=== PATIENT | female | born 1955 | race Caucasian/White ===

== ENCOUNTER 2016-12-05 23:45 | Observation (INO) | payer OTHER ==
[~2016-12-05] VITALS: Ht 170.2 cm; Wt 89.3 kg
[2016-12-05 23:45] VITALS: Ht 170.2 cm; Wt 89.3 kg
[2016-12-06] VITALS (14 sets, daily range): BP systolic 107–157; BP diastolic 63–91; PULSE 70–97; TEMP 36.7–36.9; O2SAT 91–97
[2016-12-06] MEDS ORDERED: ALBUT/IPRATROP 3MG/0.5MG NEB 3 ML VIAL INH STA (00:04)
[2016-12-06] MEDS ORDERED: ASCO10003 PO (00:24)
[2016-12-06] MEDS ORDERED: CALC-214 PO (00:24)
[2016-12-06] MEDS ORDERED: FLUT0.15 NAE (00:24)
[2016-12-06] MEDS ORDERED: CHOLCAP5 PO (00:24)
[2016-12-06] MEDS ORDERED: LEVO150T9 PO (00:24)
[2016-12-06] MEDS ORDERED: ECHI380C2 PO (00:24)
[2016-12-06] MEDS ORDERED: MULT-506 PO (00:24)
[2016-12-06 00:43] LABS: BASO % 0.2 %; BASO ABS # 0.04 K/uL (0-0.2); COMPLETE YES; EOS % 0.9 %; HEMATOCRIT 40.6 % (37-47); IG% 0.6 %; LYMPH % 24.4 %; LYMPH ABS # 3.91 K/uL (1.2-3.4); MEAN CELL VOLUME 94.2 fL (80-100); MEAN CORPUSCULAR HEMOGLOBIN 32.9 pg (25-34); MEAN PLATELET VOLUME 9.4 fL (7.4-10.4); MONO % 6.5 %; NEUT % 67.4 %; PLATELET COUNT 326 K/uL (130-400); RED BLOOD COUNT 4.31 M/uL (4.2-5.4); WHITE BLOOD COUNT 16.05 K/uL (4.8-10.8)
[2016-12-06] MEDS ORDERED: OPTIRAY 320 IV PRN (01:00)
[2016-12-06 01:04] LABS: BUN/CREATININE RATIO 20.6 (10-20); CALCIUM 8.7 mg/dl (8.5-10.1); POTASSIUM 3.2 mmol/L (3.5-5.1)
[2016-12-06 01:10] LABS: URINE APPEARANCE CLEAR (CLEAR); URINE BILIRUBIN NEG (NEG); URINE COLOR YELLOW; URINE NITRITE NEG (NEG); URINE PH 5.5 (4.5-7.5); URINE SPECIFIC GRAVITY 1.022 (1.000-1.030); UROBILINOGEN NEG (NEG)
[2016-12-06 01:14] LABS: ALB/GLOB RATIO 1.1 (0.9-2); CKMB/CK RATIO 2.2 (0-3.0)
[2016-12-06 01:15] LABS: MANUAL MICROSCOPIC REQUIRED? NO; REVIEW REQ? NO
--- NOTE | 2016-12-06 02:32 | EMERGENCY ROOM VISIT NOTE ---
History Report prepared by Clementeibedmundo: Georgia Burns Under the Supervision of: Dr. René Mittal M.D. First contact with patient: 23:55 Chief Complaint: SHORTNESS OF BREATH Stated Complaint: RESPIRATORY/WHEEZING Nursing Triage Summary: Pt arrived via [facility] from home. Pt reports she awoke tonight with an asthma attack. Pt states she "hasn't had one in years". Upper respiratory infection 3 weeks ago. Tx with steriods and antibiotics. Pt reports she felt "a little better", but never made it back to baseline. Received 125mg solumedrol in ambulance along with duoneb. History of Present Illness The patient is a 61 year old female who presents to the Emergency Room with complaints of shortness of breath that started prior to arrival. She was brought to the ED via EMS from home. She reports she awoke from sleep with an asthma attack around 2244. She states "I haven't had an attack in years". She is a former smoker, but quit "over 30 years ago". The patient did experience an upper respiratory tract infection approximately 3 weeks ago, that was treated with a Prednisone taper and a Z-Pack by her doctors office. She notes "I felt a little better, but I never got back to my baseline". She called her PCP's office and was told to "wait a week" and see if her symptoms improved. The patient states her symptoms "have not worsened, but they are not better". She was given 125 mg Solu-Medrol and a DuoNeb in the field that provided good relief. She also complains of a headache currently. The patient denies any LOC, fevers, chills, diaphoresis, visual changes, neck pain, chest pain, nausea, vomiting, abdominal pain, back pain, melena, hematochezia, urinary symptoms, numbness, weakness, lymphadenopathy, rash, or other complaints. Source of History: patient Onset: 2244 tonight Position: chest Timing: resolved Modifying Factors (Relieving): other (Prednisone, Z-pack, DuoNeb, Solu- Medrol) Associated Symptoms: + headache Review of Systems See HPI for pertinent positives and negatives. A total of ten systems were reviewed and were otherwise negative. Past Medical & Surgical Medical Problems: (1) Asthma (2) Dyspnea Social History Smoking Status: Former Smoker Alcohol Use: occasionally Drug Use: none Marital Status: Housing Status: lives alone Occupation Status: employed Current/Historical Medications Scheduled Ascorbic Acid (Vitamin C), 1,000 MG PO DAILY Calcium W/ Magnesium (Calcium & Magnesium), 1 TAB PO DAILY Cholecalciferol (Vitamin D3), 5,000 UNITS PO DAILY Echinacea (Echinacea), Unknown Dose PO DAILY Fluticasone Propionate (Nasal) (Flonase Allergy Relief), 1 SPRAY HUNG HS Levothyroxine Sodium (Levothyroxine Sodium), 150 MCG PO DAILY Multivitamin (Multivitamin), 1 TAB PO DAILY Allergies Coded Allergies: Penicillins (Verified Allergy, Severe, SOB, 12/06/16) Sulfa Antibiotics (Verified Allergy, Severe, SHORTNESS OF BREATH, 12/06/16 ) Physical Exam Vital Signs Date Time Temp Pulse Resp B/P (MAP) Pulse Ox O2 Delivery O2 Flow Rate FiO2 12/06/16 02:02 102 20 132/96 95 Room Air 12/06/16 01:31 138/86 12/06/16 01:24 134/81 12/06/16 00:50 106 18 97 12/06/16 00:45 107 19 97 12/06/16 00:31 139/86 12/06/16 00:15 126 16 96 12/06/16 00:04 116 12/06/16 00:01 125/98 12/05/16 23:50 128/107 12/05/16 23:45 36.8 131 35 160/103 97 Room Air 12/05/16 23:45 96 Room Air 12/05/16 23:45 96 Room Air Physical Exam GENERAL: Awake, alert, uncomfortable-appearing, in no distress HENT: Normocephalic, atraumatic. Oropharynx unremarkable. EYES: Normal conjunctiva. Sclera non-icteric. NECK: Supple. No nuchal rigidity. FROM. No JVD. RESPIRATORY: Lung sounds are diminished at the bases. CARDIAC: Tachycardic heart rate, normal rhythm. Extremities warm and well perfused. Pulses equal. ABDOMEN: Soft, non-distended. No tenderness to palpation. No rebound or guarding. No masses. RECTAL: Deferred. MUSCULOSKELETAL: Chest examination reveals no tenderness. The back is symmetrical on inspection without obvious abnormality. There is no CVA tenderness to palpation. No joint edema. LOWER EXTREMITIES: Calves are equal size bilaterally and non-tender. No edema. No discoloration. NEURO: Normal sensorium. No sensory or motor deficits noted. SKIN: No rash or jaundice noted. Medical Decision & Procedures ER Provider Diagnostic Interpretation: Chest x-ray. Findings: A chest x-ray was performed and revealed no pneumothorax , effusion, infiltrate, pulmonary edema, free air under the diaphragm, or wide mediastinum. Chronic changes noted. Preliminary Findings Only See Final Report For Complete Findings CTA CHEST: No evidence of PE. Lungs are clear. No pleural effusions. No adenopathy. No pericardial effusion. Aorta is unremarkable. 8.6 mm pulmonary nodule at the left lower lobe abutting the pleura. Noncalcified and indeterminate. Further investigation/follow-up suggested. Question mild infiltrate at the medial segment of the right middle lobe. Correlate for clinical significance. Radiologist: David Lou M.D. Laboratory Results 12/05/16 00:25 Red Blood Count 4.31, Mean Corpuscular Volume 94.2, Mean Corpuscular Hemoglobin 32.9, Mean Corpuscular Hemoglobin Concent 35.0, Mean Platelet Volume 9.4, Neutrophils (%) (Auto) 67.4, Lymphocytes (%) (Auto) 24.4, Monocytes (%) (Auto) 6.5, Eosinophils (%) (Auto) 0.9, Basophils (%) (Auto) 0.2, Neutrophils # (Auto) 10.81, Lymphocytes # (Auto) 3.91, Monocytes # (Auto) 1.05, Eosinophils # (Auto) 0.15, Basophils # (Auto) 0.04 12/05/16 00:25 Test 12/05/16 00:25 12/06/16 00:34 12/06/16 00:58 White Blood Count 16.05 K/uL (4.8-10.8) Red Blood Count 4.31 M/uL (4.2-5.4) Hemoglobin 14.2 g/dL (12.0-16.0) Hematocrit 40.6 % (37-47) Mean Corpuscular Volume 94.2 fL (80-100) Mean Corpuscular Hemoglobin 32.9 pg (25-34) Mean Corpuscular Hemoglobin Concent 35.0 g/dl (32-36) Platelet Count 326 K/uL (130-400) Mean Platelet Volume 9.4 fL (7.4-10.4) Neutrophils (%) (Auto) 67.4 % Lymphocytes (%) (Auto) 24.4 % Monocytes (%) (Auto) 6.5 % Eosinophils (%) (Auto) 0.9 % Basophils (%) (Auto) 0.2 % Neutrophils # (Auto) 10.81 K/uL (1.4-6.5) Lymphocytes # (Auto) 3.91 K/uL (1.2-3.4) Monocytes # (Auto) 1.05 K/uL (0.11-0.59) Eosinophils # (Auto) 0.15 K/uL (0-0.5) Basophils # (Auto) 0.04 K/uL (0-0.2) RDW Standard Deviation 43.8 fL (36.4-46.3) RDW Coefficient of Variation 12.6 % (11.5-14.5) Immature Granulocyte % (Auto) 0.6 % Immature Granulocyte # (Auto) 0.09 K/uL (0.00-0.02) Anion Gap 13.0 mmol/L (3-11) Est Creatinine Clear Calc Drug Dose 69.4 ml/min Estimated GFR () 70.9 Estimated GFR (Non- 61.2 BUN/Creatinine Ratio 20.6 (10-20) Calcium Level 8.7 mg/dl (8.5-10.1) Total Bilirubin 0.3 mg/dl (0.2-1) Aspartate Amino Transf (AST/SGOT) 17 U/L (15-37) Alanine Aminotransferase (ALT/SGPT) 36 U/L (12-78) Alkaline Phosphatase 81 U/L (45-117) Total Creatine Kinase 134 U/L (26-192) Creatine Kinase MB 2.9 ng/ml (0.5-3.6) Creatine Kinase MB Ratio 2.2 (0-3.0) Troponin I 0.235 ng/ml (0-0.045) Pro-B-Type Natriuretic Peptide 213 pg/ml (0-900) Total Protein 7.3 gm/dl (6.4-8.2) Albumin 3.9 gm/dl (3.4-5.0) Globulin 3.4 gm/dl (2.5-4.0) Albumin/Globulin Ratio 1.1 (0.9-2) Bedside D-Dimer > 450 ng/mlFEU (0-450) Urine Color YELLOW Urine Appearance CLEAR (CLEAR) Urine pH 5.5 (4.5-7.5) Urine Specific [place] 1.022 (1.000-1.030) Urine Protein 2+ (NEG) Urine Glucose (UA) NEG (NEG) Urine Ketones NEG (NEG) Urine Occult Blood TRACE (NEG) Urine Nitrite NEG (NEG) Urine Bilirubin NEG (NEG) Urine Urobilinogen NEG (NEG) Urine Leukocyte Esterase NEG (NEG) Urine WBC (Auto) 1-5 /hpf (0-5) Urine RBC (Auto) 0-4 /hpf (0-4) Urine Hyaline Casts (Auto) 1-5 /lpf (0-5) Urine Epithelial Cells (Auto) 10-20 /lpf (0-5) Urine Bacteria (Auto) NEG (NEG) Laboratory results reviewed by me Medications Administered Medications (Trade) Dose Ordered Sig/Galileo Route Start Time Stop Time Status Last Admin Dose Admin Albuterol/ Ipratropium (Duoneb) 3 ml NOW STAT INH 12/06/16 00:04 12/06/16 00:05 DC 12/06/16 00:21 3 ML ECG Indication: SOB/dyspnea Rate (beats per minute): 104 Rhythm: sinus tachycardia (with fusion complexes) Findings: nonspecific-ST abn, no acute ischemic change ED Course 1202: The patient was evaluated in room C2. A complete history and physical exam was performed. 0004: DuoNeb 3 ml INH. 0140; patient was reassessed and is doing better. 0230: Updated on findings and need for further treatment in the hospital. Patient is in agreement. Consultation placed with internal medicine. Medical Decision Triage Nursing notes reviewed. The patient's presentation and history were concerning for respiratory difficulty. Etiologies such as pneumonia, COPD, reactive airway disease, CHF, cardiac ischemia, pulmonary embolism, pneumothorax, musculoskeletal, infections, gastrointestinal, as well as others were entertained. The patient was evaluated. She was doing better after a DuoNeb and Solu-Medrol from EMS. A second DuoNeb was given. The patient was feeling better with this. ECG did not reveal any obvious ischemia. Her chest x-ray was noted as above. She does have a long history of smoking. The patient had a mild leukocytosis and CBC. Chemistry panel was unremarkable. The patient does have an elevated d-dimer and troponin. CT imaging was performed. She has a small pneumonia. No blood clots were noted. She was informed about her pulmonary nodule and need for follow-up in 6 months. Because of the elevated troponin she was given aspirin. She noted a small headache and was given Tylenol. The patient was given a dose of IV Levaquin. Consultation was placed with the hospitalist service. The patient was evaluated in the Emergency Room for further management. Medication Reconcilliation Current Medication List: was personally reviewed by me Blood Pressure Screening Patient's blood pressure: Normal blood pressure Blood pressure disposition: Did not require urgent referral Consults Time Called: [phone] Consulting Physician: Dr. Fang Returned Call: [phone] Discussed the patient's history, physical, diagnostics, and treatment. The patient will need admission and she will evaluate her for further management. Impression Primary Impression: Respiratory distress Additional Impressions: Pneumonia Elevated troponin Scribe Attestation The scribe's documentation has been prepared under my direction and personally reviewed by me in its entirety. I confirm that the note above accurately reflects all work, treatment, procedures, and medical decision making performed by me. Departure Information Dispostion Being Evaluated By Hospitalist Referrals No Doctor, Assigned (PCP) Patient Instructions My [facility] Problem Qualifiers
[2016-12-06] MEDS ORDERED: LEVAQUIN 750MG / 150ML D5W IV STA (02:33)
[2016-12-06] MEDS ORDERED: ACETAMINOPHEN 500 MG TAB PO STA (02:33)
[2016-12-06] MEDS ORDERED: ASPIRIN 81 MG CHEW PO STA (02:33)
[2016-12-06] MEDS ORDERED: MoRPHine SULFATE 2 MG/ML CARP IV STA (04:50)
[2016-12-06] MEDS ORDERED: LEVALBUTEROL/IPRATROPIUM NEB INH PRN (05:00)
[2016-12-06] MEDS ORDERED: ACETAMINOPHEN 325 MG TAB PO PRN ×2 (05:00→14:30)
[2016-12-06] MEDS ORDERED: POLYETHYLENE (MIRALAX) 17 GM PACK PO PRN (05:00)
[2016-12-06] MEDS ORDERED: MoRPHine SULFATE 2 MG/ML CARP IV PRN (05:00)
[2016-12-06] MEDS ORDERED: ONDANSETRON INJ 2 MG/ML 2 ML VIAL IV PRN (05:00)
[2016-12-06] MEDS ORDERED: NITROGLYCERIN 0.4 MG SL PER TAB CHARGE SL PRN (05:00)
[2016-12-06] MEDS ORDERED: IV FLUIDS COMPLETED PRN (05:15)
--- NOTE | 2016-12-06 05:31 | History and Physical ---
History & Physical Date & Time of Service: Dec 06, 2016 at 05:04 Chief Complaint: Dyspnea Primary Care Physician: Harjit Ramos M.D.(CHRYSTAL) History of Present Illness Source: patient, clinic records, hospital records 61 yo F presents with persistent chest tightness and shortness of breath that has been ongoing x 3 weeks. She reports a history of childhood asthma and no history of heart disease in the past. She states that because of a cough and greenish drainage from her nose 3 weeks ago she was seen in the clinic and was diagnosed with an asthma exacerbation. She was prescribed a prednisone taper, azithromycin and a rescue inhaler. Although she didn't get worse she states that she never felt much better. She reports the SOB is there along with the feeling of chest pressure, but it doesn't limit her from doing the things she needs to do including walking the dog, climbing a flight of stairs, running errands,etc. She noted an extreme worsening in her ability to breathe earlier this evening and called EMS who gave her Solumedrol IV and a neb treatment in the field with some improvement in her symptoms. On arrival to the ER she received another neb treatment. She was given ASA 324 and Tylenol 1000mg. A D- dimer was checked and positive, so a CT PE was performed. There was a RML infiltrate seen, cardiac enzymes were mildly positive at 0.235 with the patient still reporting pressure in her chest, EKG was nonischemic and sinus rhythm and her HR was noted to be elevated. Although she reports significant respiratory distress, she is oxygenating well on room air at the time of this exam and has no conversational dyspnea. ROS reveals no fevers, chills, sweating, nausea, vomiting, abdominal pain, UTI symptoms, GI bleeding. 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) Immunizations History of Influenza Vaccine: Yes Influenza Vaccine Date: Dec 11, 2015 History of Tetanus Vaccine?: Yes Tetanus Immunization Date: Jan 14, 2014 History of Pneumococcal: No History of Hepatitis B Vaccine: No Multi-Drug Resistant Organisms History of MDRO: No Allergies Coded Allergies: Penicillins (Verified Allergy, Severe, SOB, 12/06/16) Sulfa Antibiotics (Verified Allergy, Severe, SHORTNESS OF BREATH, 12/06/16 ) Home Medications Scheduled Ascorbic Acid (Vitamin C), 1,000 MG PO DAILY Calcium W/ Magnesium (Calcium & Magnesium), 1 TAB PO DAILY Cholecalciferol (Vitamin D3), 5,000 UNITS PO DAILY Echinacea (Echinacea), Unknown Dose PO DAILY Fluticasone Propionate (Nasal) (Flonase Allergy Relief), 1 SPRAY HUNG HS Levothyroxine Sodium (Levothyroxine Sodium), 150 MCG PO DAILY Multivitamin (Multivitamin), 1 TAB PO DAILY Review of Systems At least ten systems were reviewed and negative except as indicated in HPI. Physical Exam Vital Signs Date Time Temp Pulse Resp B/P (MAP) Pulse Ox O2 Delivery O2 Flow Rate FiO2 12/06/16 02:44 103 22 146/93 94 Room Air 12/06/16 02:02 102 20 132/96 95 Room Air 12/06/16 01:31 138/86 12/06/16 01:24 134/81 12/06/16 00:50 106 18 97 12/06/16 00:45 107 19 97 12/06/16 00:31 139/86 12/06/16 00:15 126 16 96 12/06/16 00:04 116 12/06/16 00:01 125/98 12/05/16 23:50 128/107 12/05/16 23:45 36.8 131 35 160/103 97 Room Air 12/05/16 23:45 96 Room Air 12/05/16 23:45 96 Room Air General Appearance: WD/WN, no apparent distress Head: normocephalic, atraumatic Eyes: normal inspection, PERRL, sclerae normal ENT: hearing grossly normal, pharynx normal Neck: supple, trachea midline Respiratory/Chest: chest non-tender, lungs clear, normal breath sounds, no respiratory distress, no accessory muscle use Cardiovascular: no edema, no gallop, no JVD, no murmur, normal peripheral pulses, + tachycardia Abdomen/GI: normal bowel sounds, non tender, soft Back: normal inspection Extremities/Musculoskelatal: normal inspection, no pedal edema Neurologic/Psych: book or script editor II-XII nml as tested, no motor/sensory deficits, alert, normal mood/affect, oriented x 3 Skin: normal color, warm/dry, no rash Diagnostics Laboratory Results 12/05/16 00:25 Red Blood Count 4.31, Mean Corpuscular Volume 94.2, Mean Corpuscular Hemoglobin 32.9, Mean Corpuscular Hemoglobin Concent 35.0, Mean Platelet Volume 9.4, Neutrophils (%) (Auto) 67.4, Lymphocytes (%) (Auto) 24.4, Monocytes (%) (Auto) 6.5, Eosinophils (%) (Auto) 0.9, Basophils (%) (Auto) 0.2, Neutrophils # (Auto) 10.81, Lymphocytes # (Auto) 3.91, Monocytes # (Auto) 1.05, Eosinophils # (Auto) 0.15, Basophils # (Auto) 0.04 12/05/16 00:25 Test 12/05/16 00:25 12/06/16 00:34 12/06/16 00:58 12/06/16 05:15 White Blood Count 16.05 K/uL (4.8-10.8) Red Blood Count 4.31 M/uL (4.2-5.4) Hemoglobin 14.2 g/dL (12.0-16.0) Hematocrit 40.6 % (37-47) Mean Corpuscular Volume 94.2 fL (80-100) Mean Corpuscular Hemoglobin 32.9 pg (25-34) Mean Corpuscular Hemoglobin Concent 35.0 g/dl (32-36) Platelet Count 326 K/uL (130-400) Mean Platelet Volume 9.4 fL (7.4-10.4) Neutrophils (%) (Auto) 67.4 % Lymphocytes (%) (Auto) 24.4 % Monocytes (%) (Auto) 6.5 % Eosinophils (%) (Auto) 0.9 % Basophils (%) (Auto) 0.2 % Neutrophils # (Auto) 10.81 K/uL (1.4-6.5) Lymphocytes # (Auto) 3.91 K/uL (1.2-3.4) Monocytes # (Auto) 1.05 K/uL (0.11-0.59) Eosinophils # (Auto) 0.15 K/uL (0-0.5) Basophils # (Auto) 0.04 K/uL (0-0.2) RDW Standard Deviation 43.8 fL (36.4-46.3) RDW Coefficient of Variation 12.6 % (11.5-14.5) Immature Granulocyte % (Auto) 0.6 % Immature Granulocyte # (Auto) 0.09 K/uL (0.00-0.02) Anion Gap 13.0 mmol/L (3-11) Est Creatinine Clear Calc Drug Dose 69.4 ml/min Estimated GFR () 70.9 Estimated GFR (Non- 61.2 BUN/Creatinine Ratio 20.6 (10-20) Calcium Level 8.7 mg/dl (8.5-10.1) Total Bilirubin 0.3 mg/dl (0.2-1) Aspartate Amino Transf (AST/SGOT) 17 U/L (15-37) Alanine Aminotransferase (ALT/SGPT) 36 U/L (12-78) Alkaline Phosphatase 81 U/L (45-117) Total Creatine Kinase 134 U/L (26-192) Creatine Kinase MB 2.9 ng/ml (0.5-3.6) Creatine Kinase MB Ratio 2.2 (0-3.0) Troponin I 0.235 ng/ml (0-0.045) Pro-B-Type Natriuretic Peptide 213 pg/ml (0-900) Total Protein 7.3 gm/dl (6.4-8.2) Albumin 3.9 gm/dl (3.4-5.0) Globulin 3.4 gm/dl (2.5-4.0) Albumin/Globulin Ratio 1.1 (0.9-2) Bedside D-Dimer > 450 ng/mlFEU (0-450) Urine Color YELLOW Urine Appearance CLEAR (CLEAR) Urine pH 5.5 (4.5-7.5) Urine Specific [place] 1.022 (1.000-1.030) Urine Protein 2+ (NEG) Urine Glucose (UA) NEG (NEG) Urine Ketones NEG (NEG) Urine Occult Blood TRACE (NEG) Urine Nitrite NEG (NEG) Urine Bilirubin NEG (NEG) Urine Urobilinogen NEG (NEG) Urine Leukocyte Esterase NEG (NEG) Urine WBC (Auto) 1-5 /hpf (0-5) Urine RBC (Auto) 0-4 /hpf (0-4) Urine Hyaline Casts (Auto) 1-5 /lpf (0-5) Urine Epithelial Cells (Auto) 10-20 /lpf (0-5) Urine Bacteria (Auto) NEG (NEG) Date/Time Source Procedure Growth Status 12/06/16 03:10 Blood Blood Culture Pending Received Results Past 24 Hours Test 12/06/16 00:34 12/06/16 00:58 Range/Units Bedside D-Dimer > 450 0-450 ng/mlFEU Urine Color YELLOW Urine Appearance CLEAR CLEAR Urine pH 5.5 4.5-7.5 Urine Specific [place] 1.022 1.000-1.030 Urine Protein 2+ NEG Urine Glucose (UA) NEG NEG Urine Ketones NEG NEG Urine Occult Blood TRACE NEG Urine Nitrite NEG NEG Urine Bilirubin NEG NEG Urine Urobilinogen NEG NEG Urine Leukocyte Esterase NEG NEG Urine WBC (Auto) 1-5 0-5 /hpf Urine RBC (Auto) 0-4 0-4 /hpf Urine Hyaline Casts (Auto) 1-5 0-5 /lpf Urine Epithelial Cells (Auto) 10-20 0-5 /lpf Urine Bacteria (Auto) NEG NEG Microbiology Results 12/06/16 Blood Culture, Received Pending 12/06/16 Blood Culture, Received Pending Diagnostic Radiology CTA chest: no evidence of PE, No pleural effusions, adenopathy, pericardial effusions. 8.6mm pulmonary nodule in LLL-noncalcified. ?RML infiltrate. EKG SR 104, LAFB Impression Assessment and Plan 61 yo F with no h/o CAD presents with 3 days of respiratory symptoms with worsening dyspnea overnight and elevated troponin. 1. Atypical chest pain with Elevated troponin-Lipitor 80, ASA given. BB started in setting of tachycardia. Consult cardiology 2. Dyspnea 2/2 CAP vs COPD exacerbation?-improved after solumedrol and nebs, currently not hypoxic, wheezing or short of breath. Would hold off on any further steroids in the setting of tachycardia. Treat CAP with Levaquin/ duonebs PRN. Pt sates she is already improved. 2. CAP-Abx as above. Blood and sputum cultures are pending. 3. ?Bacterial sinusitis-Levaquin to cover 4. h/o smoking-she remains quit 5. Pulmonary nodule-with h/o smoking needs close follow-up as outpatient. 6. Hypokalemia-replace 7. Leukocytosis DVT proph: Lovenox Full Code Dispo-telemetry DO [facility] Hospital[facility] Level of Care Telemetry Resuscitation Status FULL RESUSCITATION VTE Prophylaxis VTE Risk Assessment Done? Y/N: Yes Risk Level: Moderate Given or contraindicated: Enoxaparin (Lovenox)SQ
[2016-12-06 05:54] LABS: HEMATOCRIT 40.3 % (37-47); MEAN CELL VOLUME 93.7 fL (80-100); MEAN CORPUSCULAR HEMOGLOBIN 32.3 pg (25-34); MEAN CORPUSCULAR HGB CONC 34.5 g/dl (32-36); MEAN PLATELET VOLUME 9.4 fL (7.4-10.4); PLATELET COUNT 345 K/uL (130-400); WHITE BLOOD COUNT 14.72 K/uL (4.8-10.8)
[2016-12-06] MEDS ORDERED: POTASSIUM CHLORIDE 20 MEQ TABCR PO ONE (06:00)
[2016-12-06] MEDS ORDERED: ATORVASTATIN 40 MG TAB PO ONE (06:00)
[2016-12-06] MEDS: LEVOTHYROXINE 150 MCG TAB PO SCH (06:12)
[2016-12-06] MEDS: METOPROLOL TARTRATE 25 MG TAB PO SCH ×2 (06:13→18:15)
[2016-12-06] MEDS ORDERED: IPRATROPIUM BROMIDE NEB SOLN 0.02% 2.5 ML VIAL INH PRN (06:15)
[2016-12-06] MEDS ORDERED: LEVALBUTEROL 1.25MG/0.5ML NEB INH PRN (06:15)
[2016-12-06 06:20] LABS: BUN/CREATININE RATIO 17.9 (10-20); CALCIUM 8.9 mg/dl (8.5-10.1); MAGNESIUM 2.3 mg/dl (1.8-2.4); POTASSIUM 3.6 mmol/L (3.5-5.1)
[2016-12-06] MEDS ORDERED: INFLUENZA ADMINISTRATION CHARGE ONE (06:30)
[2016-12-06] MEDS ORDERED: PNEUMOCOCCAL POLYSACCHARIDES 25 MCG/0.5 ML VIAL/SYR IM. ONE (06:30)
[2016-12-06] MEDS ORDERED: INFLUENZA VIRUS QUAD VACCINE 0.5 ML SYR IM. ONE (06:30)
[2016-12-06] MEDS ORDERED: PNEUMOCOCCAL ADMINISTRATION CHARGE ONE (06:30)
[2016-12-06 06:35] LABS: CHOLESTEROL/HDL RATIO 2.4; CKMB/CK RATIO 3.7 (0-3.0); THYROID STIMULATING HORMONE 2.21 uIu/ml (0.300-4.500)
--- NOTE | 2016-12-06 07:12 | DIAGNOSTIC IMAGING REPORT ---
SINGLE VIEW CHEST CLINICAL HISTORY: Dyspnea. Asthma. FINDINGS: 2 AP, portable, upright chest radiographs are obtained. No prior studies are available for comparison at the time of dictation. The examination is degraded by portable technique and patient rotation. The heart is top normal for projection. The mediastinal contour is within normal limits. The lungs and pleural spaces are clear. No pneumothorax is seen. The skeletal structures are osteopenic. The bony thorax is grossly intact. IMPRESSION: No active disease in the chest. Electronically signed by: Colin Rand M.D. 12/06/2016 7:11 AM Dictated Date/Time: 12/06/2016 7:09 AM
--- NOTE | 2016-12-06 07:18 | DIAGNOSTIC IMAGING REPORT ---
CT ANGIOGRAM OF THE CHEST CLINICAL HISTORY: Dyspnea. COMPARISON STUDY: Chest x-ray dated 12/06/2016. TECHNIQUE: Following the IV administration of 92 cc of Optiray 320, CT angiogram of the chest was performed from the upper abdomen to the thoracic inlet utilizing the pulmonary embolus protocol. Images are reviewed in the axial, sagittal, and coronal planes. 3-D MIPS images are created and assessed. IV contrast was administered without complication. A dose lowering technique was utilized adhering to the principles of ALARA. CT DOSE: 329.94 mGy.cm FINDINGS: Thyroid: Markedly atrophic. Thoracic aorta: The thoracic aorta is normal in caliber and demonstrates standard 3-vessel arch anatomy. No dissection is seen. Pulmonary vasculature: The pulmonary trunk is normal in caliber. There are no filling defects identified in main, lobar, or segmental pulmonary branches to suggest pulmonary embolus. Heart: The heart is normal in size and configuration, and without pericardial effusion. Lungs and pleural spaces: Mild paraseptal emphysematous change is seen at the lung apices. No airspace consolidation or pleural effusion is identified. Dependent atelectasis is observed. The trachea and central airways are clear. There is a 9 mm pulmonary nodule in the left lower lobe seen on image #94. Mediastinum: There is no mediastinal lymphadenopathy. Tenisha: Clear. Axillae: There is no axillary lymphadenopathy. Upper abdomen: A tiny hiatal hernia is identified. There is evidence of hepatic steatosis. A 1.4 cm hypodensity is seen in the left lobe of the liver. Skeletal structures: The skeletal structures are osteopenic. No lytic or blastic bony lesions are seen. IMPRESSION: 1. There is no evidence of pulmonary embolus in the main, lobar, or segmental pulmonary arteries. 2. There is no airspace consolidation or pleural effusion. 3. Mild emphysema. 4. There is a 9 mm pulmonary nodule in the left lower lobe. This should be followed as per the Fleischner criteria. See below. 5. There is a 1.4 cm hypodensity seen in the left lobe of the liver. This is an indeterminant and may represent a small hemangioma. This does not meet CT criteria for a cyst. If there is no cancer history then this is of low suspicion. If definitive characterization is desired then MRI of the liver would be appropriate. 6. Hepatic steatosis. Please refer to below summary of Fleischner criteria recommendations for follow-up of incidental CT nodules (Gama Schmitz, Guidelines for management of small pulmonary nodules detected on CT scans: A statement from the Fleischner Society, Radiology 237: [phone].) SOLID NODULES Solitary nodule size: <6 mm * low risk patients: no follow-up needed * high risk patients: optional CT at 12 months Solitary nodule size: 6-8 mm * low risk patients: follow-up at 6-12 months, then consider further follow-up at 18-24 months * high risk patients: initial follow-up CT at 6-12 months and then at 18-24 months if no change Solitary nodule size: >8 mm * either low or high risk patients - consider follow-up CT at 3 months, and/or CT-PET, and/or biopsy Multiple nodules size: <6 mm * low risk patients: no routine follow-up * high risk patients: optional CT at 12 months Multiple nodules size: 6-8 mm * low risk patients: follow-up at 3-6 months, then consider further follow-up at 18-24 months * high risk patients: follow-up at 3-6 months, then at 18-24 months if no change Multiple nodules size: >8 mm * low risk patients: follow-up at 3-6 months, then consider further follow-up at 18-24 months * high risk patients: follow-up at 3-6 months, then at 18-24 months if no change Note: newly detected indeterminate nodule in persons 35 years of age or older. * low risk patients: minimal or absent history of smoking and/or other known risk factors * high risk patients: history of smoking or of other known risk factors (e.g. first degree relative with lung cancer, or exposure to asbestos, radon, uranium) * if a nodule up to 8 mm is partly solid or is ground glass further follow-up is required after 24 months to exclude possible slow growing adenocarcinoma (MURALI) SUBSOLID NODULES Solitary pure ground-glass nodule * nodule size <6 mm - no CT follow-up required * nodule size >=6 mm - follow-up CT at 6-12 months, then every 2 years until 5 years Solitary part-solid nodule * nodule size <6 mm - no CT follow-up required * nodule size >=6 mm - follow-up CT at 3-6 months. If unchanged, and solid component remains <6 mm, then annual follow-up for 5 years Multiple subsolid nodules * nodule size <6 mm - follow-up CT at 3-6 months, consider further follow-up at 2 and 4 years if stable * nodule size >=6 mm - follow-up CT at 3-6 months, subsequent management based on the most suspicious nodule(s) Electronically signed by: Colin Rand M.D. 12/06/2016 7:16 AM Dictated Date/Time: 12/06/2016 7:11 AM
[2016-12-06 08:28] LABS: PARTIAL THROMBOPLASTIN RATIO 0.9; PROTHROMBIN TIME (PATIENT) 10.5 SECONDS (9.0-12.0)
[2016-12-06] MEDS: CALCIUM 600MG + VIT D 400 IU TAB PO SCH ×2 (08:56→20:43)
[2016-12-06] MEDS: MULTIVITAMIN TAB PO SCH (08:57)
[2016-12-06] MEDS: ASPIRIN 81 MG ECTAB PO SCH (08:57)
[2016-12-06] MEDS: ASCORBIC ACID 500 MG TAB PO SCH (08:57)
--- NOTE | 2016-12-06 12:05 | Cardiology Consultation ---
Cardiology Consultation Date of Consultation: Dec 06, 2016 Requesting Physician: Dr. Fang Attending Interlacer: Dr. Franco (Charline Sultana, EUNICE) History of Present Illness Patient is a 61 year old female with a past history of prior tobacco abuse 1/2 PPD x30 years, quitting in August 2016, hypothyroidism, history of asthma with frequent bronchitis, and probably underlying COPD. She denies prior history of cardiovascular issues including OR, CHF, valvular heart disease or arrhythmias. She has never had an echocardiogram or a stress test per her recollection. She does have a family history of CAD, with father needing CABG age 60. Recent history includes development of bronchitis, sinus infection, with treatment of Z-Keenan and prednisone taper. Symptoms improved over the last week. Last night she took her dog for 1 mile walk. She noted dyspnea on exertion, but no chest pain. SOB improved with rest, but is not an unusual symptom for her. She went to bed in usual state of health and awake with chest tightness, difficulty taking a deep breath, and SOB. She tried using her inhaler without relief. She came to ER for evaluation and treated with nebs and steroids with minimal improvement. She was found to have sinus tachycardia with nonspecific ST/T wave abnormality on EKG. Started on low dose beta shirley and ASA. Initial troponin minimally elevated at 0.2, with repeat at 0.6 with elevated CKMB. Due to elevated WBC and elevated D-Dimer, she underwent CT scan which was negative for PE and incidental finding of pulmonary nodule. There was also concerns for right middle lobe pneumonia and started on antibiotic therapy. WBC may also be elevated due to recent steroid use. At time of consult, patient feeling better, but continues to note substernal chest tightness and dyspnea with minimal exertion to the restroom. She attributes her symptoms last night and today to a "severe asthma attack". No radiation of the chest tightness. she notes associated wheeze. Cough improved. Denies orthopnea, PND or LE edema. No fever or chills to correlate with elevated WBC. 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 Head: The patient denies headache and prior head trauma. Cardiovascular: The patient denies chest pain or chest discomfort, dyspnea on exertion, palpitations, PND, orthopnea, edema, spontaneous shortness of breath, syncope and near syncope. Pulmonary: The patient denies cough, wheeze, pleurisy, hemoptysis, sputum, and excessive snoring. Gastrointestinal: The patient denies nausea, vomiting, diarrhea, constipation, bloating, hematemesis, hematochezia, and abdominal pain. Skin: The patient denies diaphoresis and rash. Musculoskeletal: The patient denies joint pain, joint swelling, myalgia, back pain, neck pain and prior injuries. Neurological: The patient denies prior stroke and seizures (Charline Sultana PA-C) Allergies Coded Allergies: Penicillins (Verified Allergy, Severe, SOB, 12/06/16) Sulfa Antibiotics (Verified Allergy, Severe, SHORTNESS OF BREATH, 12/06/16 ) Medications Reported Home Medications Medications Dose Route/Sig Max Daily Dose Days Date Category Flonase Allergy Relief (Fluticasone Propionate (Nasal)) 50 Mcg/Act Spr 1 [place] HUNG HS 12/06/16 Reported Levothyroxine Sodium 150 Mcg Tab 150 Mcg PO DAILY 90 12/06/16 Reported Vitamin D3 (Cholecalciferol) 5,000 Unit Cap 5,000 Units PO DAILY 12/06/16 Reported Echinacea Unknown Strength Cap Unknown Dose PO DAILY 12/06/16 Reported Calcium & Magnesium (Calcium W/ Magnesium) 1 Tab Tab 1 Tab PO DAILY 12/06/16 Reported Vitamin C (Ascorbic Acid) 1,000 Mg Tab 1,000 Mg PO DAILY 12/06/16 Reported Multivitamin (Multivitamins) Tab 1 Tab PO DAILY 12/06/16 Reported (Charline Sultana PA-C) Physical Exam Vital Signs (Last 8hrs): Last 8 Hrs Date Time Temp Pulse Resp B/P (MAP) Pulse Ox O2 Delivery O2 Flow Rate FiO2 12/06/16 08:00 Room Air 12/06/16 07:54 36.8 88 18 116/72 (87) 95 Room Air 12/06/16 04:20 36.9 97 16 131/78 96 Room Air General Appearance: Alert and Oriented x3. NAD. Head: Normocephalic Atraumatic. Eyes: PERRLA, EOMI, conjunctiva and sclera clear Neck: Supple. No carotid bruits noted. No JVD. No HJD. Respiratory: Breath sounds clear to auscultation bilaterally. No w/r/r. Cardiovascular: Reg rate and rhythm. S1 and S2 noted. No murmurs, rubs, gallops. PMI non displace. Abdomen: Normal bowel sounds, soft nontender. no abdominal bruits. Extremities: No edema, no clubbing or cyanosis. distal pulses 2/4 bilaterally. Neuro: No focal deficits. Psychiatric: Normal affect. (Charline Sultana PA-C) Data Last 24 Hours Test 12/06/16 00:34 12/06/16 00:58 12/06/16 05:23 12/06/16 07:56 Bedside D-Dimer > 450 ng/mlFEU Urine Color YELLOW Urine Appearance CLEAR Urine pH 5.5 Urine Specific [place] 1.022 Urine Protein 2+ Urine Glucose (UA) NEG Urine Ketones NEG Urine Occult Blood TRACE Urine Nitrite NEG Urine Bilirubin NEG Urine Urobilinogen NEG Urine Leukocyte Esterase NEG Urine WBC (Auto) 1-5 /hpf Urine RBC (Auto) 0-4 /hpf Urine Hyaline Casts (Auto) 1-5 /lpf Urine Epithelial Cells (Auto) 10-20 /lpf Urine Bacteria (Auto) NEG White Blood Count 14.72 K/uL Red Blood Count 4.30 M/uL Hemoglobin 13.9 g/dL Hematocrit 40.3 % Mean Corpuscular Volume 93.7 fL Mean Corpuscular Hemoglobin 32.3 pg Mean Corpuscular Hemoglobin Concent 34.5 g/dl RDW Standard Deviation 43.6 fL RDW Coefficient of Variation 12.8 % Platelet Count 345 K/uL Mean Platelet Volume 9.4 fL Sodium Level 141 mmol/L Potassium Level 3.6 mmol/L Chloride Level 107 mmol/L Carbon Dioxide Level 21 mmol/L Anion Gap 13.0 mmol/L Blood Urea Nitrogen 18 mg/dl Creatinine 1.00 mg/dl Est Creatinine Clear Calc Drug Dose 68.7 ml/min Estimated GFR () 70.9 Estimated GFR (Non- 61.2 BUN/Creatinine Ratio 17.9 Random Glucose 201 mg/dl Calcium Level 8.9 mg/dl Magnesium Level 2.3 mg/dl Total Creatine Kinase 156 U/L Creatine Kinase MB 5.7 ng/ml Creatine Kinase MB Ratio 3.7 Troponin I 0.683 ng/ml Triglycerides Level 99 mg/dl Cholesterol Level 207 mg/dl HDL Cholesterol 88 mg/dl LDL Cholesterol, Calculated 99 mg/dl VLDL Cholesterol, Calculated 20 mg/dl Cholesterol/HDL Ratio 2.4 Thyroid Stimulating Hormone (TSH) 2.210 uIu/ml Hepatitis C Antibody Screen NEG Prothrombin Time 10.5 SECONDS Prothromb Time International Ratio 1.0 Activated Partial Thromboplast Time 23.4 SECONDS Partial Thromboplastin Ratio 0.9 Test 12/06/16 11:30 Creatine Kinase MB Ratio Imaging: Chest xray on admission: IMPRESSION: No active disease in the chest. Chest CT on admission; EKG: Telemetry reviewed: (Charline Sultana PA-C) Assessment & Plan 1. chest tightness/dyspnea with mild troponin elevation 0.2, 0.6 respectively -concerning for angina -nonspecific ST/T wave flattening on EKG -recommend repeat cardiac enzymes later this AM -patient to remain NPO -2D echocardiogram/dobutamine stress echo ordered -Further recommendations pending review of labs and echo/stress -continue ASA/beta shirley as initiated on admission 2. sinus tachycardia - improved on beta shirley 3. prior tobacco abuse 4. History of asthma with recent bronchitis 5. LLL Pulmonary nodule - will need follow. Case discussed with Dr. Franco. Further recommendations pending review of above test results. (Charline Sultana PA-C) Cardiology attending: Pt seen and examined, agree with findings and assessment as per Charline Hernandez. Pt with chest tightness and sob for over a month. Now echocardiogram reveals multiple wall motion abnormalities. Will d/c stress portion and proceed with cardiac catheterization, risks and benefits discussed. Still with some chest tightness, will give SL nitro now along with IV Lopressor and follow pain closely until cath. (Carlos Franco, D.O.)
[2016-12-06] MEDS ORDERED: METOPROLOL TARTRATE 1 MG/ML VIAL IV SCH (12:11)
--- NOTE | 2016-12-06 12:31 | ECHOCARDIOGRAM REPORT ---
*NOTICE TO RECEIVING DEMOCRAT AGENCY This information is strictly Confidential and protected under [place] law. [place] law prohibits you from making any further disclosure of this information unless further disclosure is expressly permitted by the written consent of the person to whom it pertains or is authorized by law. A general authorization for the release of medical or other information is not sufficient for this purpose. Hospital accepts no responsibility if the information is made available to any other person, INCLUDING THE PATIENT. Interpretation Summary * Name: DEBORAH BENDER Study Date: 12/06/2016 10:42 AM BP: 116/72 mmHg * Patient Location: C.2T\S\S229\S\1 HR: 88 * : 1955 (M/d/yyyy) Gender: Female Height: 67 in * Age: 61 yrs Ethnicity: CA Weight: 196 lb * Ordering Physician: Shira Dawson * Performed By: Gissel Cormier * * Reason For Study: ELEVATED TROP, CHEST PRESSURE * BSA: 2.0 m2 * -- Conclusions -- * Mildly dilated LV chamber size. * Normal wall thickness with thinning of the anterior and anteroseptal mitchell consistent with scar. * Akinesis of the mid anterior/anteroseptal mitchell. Normal wall motion of the basal/mid inferior wall and anteroapical mitchell, otherwise, moderate hypokinesis of all other segments. * Moderate reduced LV systolic function, EF 40-45%. * Grade I diastolic dysfunction. * No significant valvular pathology. Procedure Details * A complete two-dimensional transthoracic echocardiogram was performed (2D, M-mode, Doppler and color flow Doppler). * A contrast injection of Definity was performed to improve assessment of LV function. * Contrast was injected into an intravenous site in the left arm. * One vial of Definity ultrasound contrast was diluted in normal saline to a total volume of 10 ml. A total of '2' ml of solution was administered during imaging. * Lot # [id number] of Definity utilized for procedure. * Expiration date 12/14. * The attending nurse who injected the contrast agent was ALISHA CONWAY RN. Left Ventricle * The left ventricle is mildly dilated. * There is no thrombus. * Normal wall thickness with thinning of the anterior and anteroseptal mitchell consistent with scar. * Ejection Fraction = 40-45%. * Left ventricular systolic function is moderately reduced. * Akinesis of the mid anterior/anteroseptal mitchell. Normal wall motion of the basal/mid inferior wall and anteroapical mitchell, otherwise, moderate hypokinesis of all other segments. Right Ventricle * The right ventricular cavity size is normal (basal dimension <4.2 cm in right ventricular apical 4-chamber view). * The right ventricular systolic function is normal as assessed by tricuspid annular plane systolic excursion (TAPSE) (normal >1.5 cm). Atria * The left atrial size is normal. * Right atrial size is normal. * No ASD detected; PFO is not assessed. Mitral Valve * The mitral valve is normal in structure and function. Tricuspid Valve * The tricuspid valve is normal in structure and function. Aortic Valve * The aortic valve is not well visualized. * No hemodynamically significant valvular aortic stenosis. * There is no significant aortic regurgitation. Pulmonic Valve * The pulmonary valve is not well seen, but the Doppler examination is normal without significant regurgitation or stenosis. Great Vessels * The aortic root and proximal ascending aorta are normal sized. Pericardium/Pleural * There is no pericardial effusion. Left Ventricular Diastolic Function * Grade I diastolic dysfunction, (abnormal relaxation pattern). MMode 2D Measurements and Calculations IVSd 0.68 cm IVSs 0.99 cm LVIDd 5.0 cm LVIDs 4.0 cm LVPWd 0.60 cm LVPWs 1.5 cm IVS/LVPW 1.1 FS 19.7 % EDV(Teich) 119.7 ml ESV(Teich) 71.4 ml EF(Teich) 40.3 % EDV(cubed) 127.0 ml ESV(cubed) 65.6 ml EF(cubed) 48.3 % % IVS thick 45.3 % % LVPW thick 141.3 % LV mass(C)d 104.1 grams LV mass(C)dI 51.9 grams/m\S\2 LV mass(C)s 172.5 grams LV mass(C)sI 86.1 grams/m\S\2 CO(Teich) 4.0 l/min CI(Teich) 2.0 l/min/m\S\2 SV(Teich) 48.3 ml SI(Teich) 24.1 ml/m\S\2 CO(cubed) 5.0 l/min CI(cubed) 2.5 l/min/m\S\2 SV(cubed) 61.3 ml SI(cubed) 30.6 ml/m\S\2 ACS 1.7 cm asc Aorta Diam 3.2 cm LVOT diam 1.9 cm LVOT area 2.8 cm\S\2 LVAd ap4 35.2 cm\S\2 LVLd ap4 8.0 cm EDV(MOD-sp4) 124.0 ml LVAs ap4 22.2 cm\S\2 LVLs ap4 6.3 cm ESV(MOD-sp4) 63.5 ml EF(MOD-sp4) 48.8 % LVAd ap2 38.7 cm\S\2 LVLd ap2 8.5 cm EDV(MOD-sp2) 147.0 ml LVAs ap2 24.1 cm\S\2 LVLs ap2 6.5 cm ESV(MOD-sp2) 71.3 ml EF(MOD-sp2) 51.5 % CO(MOD-sp4) 5.0 l/min CI(MOD-sp4) 2.5 l/min/m\S\2 SV(MOD-sp4) 60.5 ml SI(MOD-sp4) 30.2 ml/m\S\2 CO(MOD-sp2) 6.2 l/min CI(MOD-sp2) 3.1 l/min/m\S\2 SV(MOD-sp2) 75.7 ml SI(MOD-sp2) 37.8 ml/m\S\2 Doppler Measurements and Calculations MV E max ronald 68.9 cm/sec MV A max ronald 100.9 cm/sec MV E/A 0.68 MV dec time 0.15 sec Ao V2 max 130.3 cm/sec Ao max PG 6.8 mmHg Ao max PG (full) 3.3 mmHg MARIE(V,A) 2.0 cm\S\2 MARIE(V,D) 2.0 cm\S\2 LV V1 max PG 3.5 mmHg LV V1 max 93.6 cm/sec PA V2 max 101.9 cm/sec PA max PG 4.2 mmHg TR max ronald 208.1 cm/sec
[2016-12-06] MEDS: ENOXAPARIN 40 MG/0.4 ML SYR SC SCH (12:51)
[2016-12-06 13:26] LABS: CKMB/CK RATIO 4.7 (0-3.0)
[2016-12-06] MEDS ORDERED: MIDAZOLAM HCL 1 MG/ML 2ML VIAL ONE (13:32)
[2016-12-06] MEDS ORDERED: NiCARDipine HCL INJ 2.5 MG/ML 10 ML AMP ONE (13:32)
[2016-12-06] MEDS ORDERED: HEPARIN SOD (PORCINE) 1000 UNIT/ML 10 ML VIAL ONE (13:32)
[2016-12-06] MEDS ORDERED: FENTANYL CITRATE INJ 50 MCG/1 ML 2 ML VIAL ONE (13:32)
[2016-12-06] MEDS ORDERED: NITROGLYCERIN/D5W 100MCG/ML 20ML SYR ONE (13:32)
--- NOTE | 2016-12-06 14:13 | Procedure Note ---
Post-Mod Sedation Assessment General Date of Moderate Sedation Dec 06, 2016. Vital Signs: Vital Signs Past 12 Hours Date Time Temp Pulse Resp B/P (MAP) Pulse Ox O2 Delivery O2 Flow Rate FiO2 12/06/16 13:09 36.8 81 18 147/87 96 Room Air 12/06/16 12:38 81 147/87 (107) 12/06/16 12:34 82 154/91 (112) 96 Room Air 12/06/16 12:28 89 157/91 12/06/16 12:27 89 157/91 (113) 12/06/16 12:18 Room Air 12/06/16 08:00 Room Air 12/06/16 07:54 36.8 88 18 116/72 (87) 95 Room Air 12/06/16 04:20 36.9 97 16 131/78 96 Room Air 12/06/16 02:44 103 22 146/93 94 Room Air Review - Discharge Criteria Vital Signs Stable: Yes Alert/Oriented/Conversant: Yes Returned to Baseline Mental St: Yes Nausea Absent/Minimal: Yes Pain/Discomfort/Absent/Minimal: Yes Normal/Baseline Respirations: Yes Active Bleeding?: No Pt Received D/C Instructions: N/A Prescriptions Given: None Specific Proced. D/C Criteria Distal Pulses Present (Cardiac: Yes Groin site assessed-Card Cath: N/A Voided Prior To Discharge: N/A Discharged Patients Adult Escort/Transportation: Yes
--- NOTE | 2016-12-06 14:13 | Procedure Note ---
Pre-Mod Sedation Assessment General Date of Moderate Sedation: Dec 06, 2016. Vital Signs: Vital Signs Past 12 Hours Date Time Temp Pulse Resp B/P (MAP) Pulse Ox O2 Delivery O2 Flow Rate FiO2 12/06/16 13:09 36.8 81 18 147/87 96 Room Air 12/06/16 12:38 81 147/87 (107) 12/06/16 12:34 82 154/91 (112) 96 Room Air 12/06/16 12:28 89 157/91 12/06/16 12:27 89 157/91 (113) 12/06/16 12:18 Room Air 12/06/16 08:00 Room Air 12/06/16 07:54 36.8 88 18 116/72 (87) 95 Room Air 12/06/16 04:20 36.9 97 16 131/78 96 Room Air 12/06/16 02:44 103 22 146/93 94 Room Air Review Cardiovascular: regular rate, rhythm, no edema Abdomen: normal bowel sounds, non tender Lungs: chest non-tender, lungs clear Airway Class: III Pre-Sedation Airway Assessment Oral Cavity: WNL Able to Visualize Vocal Cords: No Short Thick Neck: No Hx of Sleep Apnea: No Smoking Status: Former Smoker Mallampati Classification: Class III ASA Classification: Class III Procedure Planning Contraindications-for Mod Sed: None Yes Notes The planned sedation has been discussed with the patient and consent obtained. I have identified the patient, determined the appropriateness of sedation and have assessed the patient immediately prior to the procedure. All medicine(s) and interventions are by my order.
[2016-12-06] MEDS ORDERED: SODIUM CHLORIDE 0.9% 1000ML 1,000 ML IV SCH (14:19)
--- NOTE | 2016-12-06 14:19 | Cardiac Catheterization ---
Procedure Note Procedure Date Dec 06, 2016. 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 Essentially normal coronary arteries 2. Normal intracardiac filling pressure Recommendations: Continued ASCVD risk factor modification and guideline directed medical therapy for cardiomyopathy per Dr. Franco Hemodynamics Rest Ao: 120/73/95 Final Ao: 109/63/84 LV: 110/11 Recommendations Medical therapy and/or Counseling Specimens None Radiation Exposure (mGy) 927 Contrast (mls) 35 Fluids (cc crystalloids) 50 Drains None Anesthesia Moderate Procedural Complication(s) None Disposition PCU ACC Data Cardiac Status Clinical evaluation leading to the procedure CAD Presntation: Non STEMI Anginal Classification: CCS III Heart Failure: No, NYHA Class: CCS I Cardiogenic Shock w/in 24Hrs: No Cardiac Arrest w/in 24Hrs: No Imaging studies past 6 months: Yes Stress studies past 6 months: No Standard Exercise Stress Test: No Stress Echocardiogram: No Stress Testing w/SPECT MPI: No Cardiac CTA: No Closure Device Percutaneous Entry Location: Radial Closure Device: Radial Band Recommendations: Medical therapy and/or Counseling Intraprocedure Events Significant Dissection: No Perforation: No
--- NOTE | 2016-12-06 16:13 | Progress Note ---
Medicine Progress Note Date & Time of Visit: Dec 06, 2016 at 15:52. Subjective Pt was seen and examined Lying in bed with no distress Pt said that her breathing slightly improved She said that she feels a tightness like pressure in her chest Denies any chest pain, palpitation, dizziness Objective Last 8 Hrs Date Time Temp Pulse Resp B/P (MAP) Pulse Ox O2 Delivery O2 Flow Rate FiO2 12/06/16 15:15 36.8 82 16 144/77 (99) 93 Room Air 12/06/16 14:52 36.9 84 18 143/86 (105) 91 Room Air 12/06/16 14:45 36.8 82 16 133/87 (102) 97 Room Air 12/06/16 14:40 36.8 82 16 133/87 (102) 97 Room Air 12/06/16 14:21 80 16 128/83 (98) Room Air 12/06/16 14:11 84 11 139/80 (99) 95 Room Air 12/06/16 13:09 36.8 81 18 147/87 96 Room Air 12/06/16 12:38 81 147/87 (107) 12/06/16 12:34 82 154/91 (112) 96 Room Air 12/06/16 12:28 89 157/91 12/06/16 12:27 89 157/91 (113) 12/06/16 12:18 Room Air 12/06/16 08:00 Room Air 12/06/16 07:54 36.8 88 18 116/72 (87) 95 Room Air Physical Exam: General- No acute distress Head- atraumatic Eyes- PERRL, EOMI ENT- oropharynx clear Neck- supple, no JVD Lungs- No wheezing Heart- regular rhythm Abdomen- normal bowel sounds, soft Extremities- no calf tenderness Neuro- alert, oriented x 3; PERRL, EOMI Skin- warm & dry Laboratory Results: Last 24 Hours Test 12/06/16 00:34 12/06/16 00:58 12/06/16 05:23 12/06/16 07:56 Bedside D-Dimer > 450 ng/mlFEU Urine Color YELLOW Urine Appearance CLEAR Urine pH 5.5 Urine Specific [place] 1.022 Urine Protein 2+ Urine Glucose (UA) NEG Urine Ketones NEG Urine Occult Blood TRACE Urine Nitrite NEG Urine Bilirubin NEG Urine Urobilinogen NEG Urine Leukocyte Esterase NEG Urine WBC (Auto) 1-5 /hpf Urine RBC (Auto) 0-4 /hpf Urine Hyaline Casts (Auto) 1-5 /lpf Urine Epithelial Cells (Auto) 10-20 /lpf Urine Bacteria (Auto) NEG White Blood Count 14.72 K/uL Red Blood Count 4.30 M/uL Hemoglobin 13.9 g/dL Hematocrit 40.3 % Mean Corpuscular Volume 93.7 fL Mean Corpuscular Hemoglobin 32.3 pg Mean Corpuscular Hemoglobin Concent 34.5 g/dl RDW Standard Deviation 43.6 fL RDW Coefficient of Variation 12.8 % Platelet Count 345 K/uL Mean Platelet Volume 9.4 fL Sodium Level 141 mmol/L Potassium Level 3.6 mmol/L Chloride Level 107 mmol/L Carbon Dioxide Level 21 mmol/L Anion Gap 13.0 mmol/L Blood Urea Nitrogen 18 mg/dl Creatinine 1.00 mg/dl Est Creatinine Clear Calc Drug Dose 68.7 ml/min Estimated GFR () 70.9 Estimated GFR (Non- 61.2 BUN/Creatinine Ratio 17.9 Random Glucose 201 mg/dl Calcium Level 8.9 mg/dl Magnesium Level 2.3 mg/dl Total Creatine Kinase 156 U/L Creatine Kinase MB 5.7 ng/ml Creatine Kinase MB Ratio 3.7 Troponin I 0.683 ng/ml Triglycerides Level 99 mg/dl Cholesterol Level 207 mg/dl HDL Cholesterol 88 mg/dl LDL Cholesterol, Calculated 99 mg/dl VLDL Cholesterol, Calculated 20 mg/dl Cholesterol/HDL Ratio 2.4 Thyroid Stimulating Hormone (TSH) 2.210 uIu/ml Hepatitis C Antibody Screen NEG Prothrombin Time 10.5 SECONDS Prothromb Time International Ratio 1.0 Activated Partial Thromboplast Time 23.4 SECONDS Partial Thromboplastin Ratio 0.9 Test 12/06/16 12:30 Total Creatine Kinase 178 U/L Creatine Kinase MB 8.4 ng/ml Creatine Kinase MB Ratio 4.7 Troponin I 0.916 ng/ml Date/Time Source Procedure Growth Status 12/06/16 03:10 Blood Blood Culture Pending Received 12/06/16 03:00 Blood Blood Culture Pending Received Assessment & Plan Chest Tightness associated with Dyspnea Elevated troponin Possible related to stress induced Troponin trending up 0.2-->0.6-->0.9 EKG showed no ischemic changes Still having chest tightness No arrhythmia on tele monitor On statin, ASA and BB shirley Cardiology on board Echo done today * Mildly dilated LV chamber size. * Normal wall thickness with thinning of the anterior and anteroseptal mitchell consistent with scar. * Akinesis of the mid anterior/anteroseptal mitchell. Normal wall motion of the basal/mid inferior wall and anteroapical mitchell, otherwise, moderate hypokinesis of all other segments. * Moderate reduced LV systolic function, EF 40-45%. * Grade I diastolic dysfunction. * No significant valvular pathology. s/p cardiac cath performed today that was normal Case discussed with cardiology recommended to start on Toprol XL and SSRI Continue monitor in telemetry Dyspnea Possible cardiac etiology Echo showed Moderate reduced LV systolic function, EF 40-45%. CXR/CT chest showed no evidence for pneumonia Received levaquin Continue duoneb treatment blood cx pending Sinusitis Has been going on for weeks, possible bacteria Elevated WBC Continue levaquin to complete 5 days course Pulmonary nodule h/o smoking, quit last August Needs close follow-up as outpatient. Hypokalemia Stable Continue monitor BMP DVT proph: Lovenox CODE STATUS Full Code Dispo-telemetry Consultants: Cardiology Procedures: Cardiac cath Current Inpatient Medications: Current Inpatient Medications Medications (Trade) Dose Ordered Sig/[place] Route Start Time Stop Time Status Last Admin Dose Admin Ioversol (Optiray 320) 100 ml UD PRN IV 12/06/16 01:00 12/10/16 00:59 Metoprolol Tartrate (Lopressor Tab) 12.5 mg Q12H PO 12/06/16 06:00 12/06/16 23:00 12/06/16 06:13 12.5 MG Enoxaparin Sodium (Lovenox Inj) 40 mg DAILY SC 12/06/16 10:30 01/05/17 10:29 12/06/16 12:51 40 MG Acetaminophen (Tylenol Tab) 650 mg Q4H PRN PO 12/06/16 05:00 01/05/17 04:59 Ondansetron HCl (Zofran Inj) 4 mg Q6H PRN IV 12/06/16 05:00 01/05/17 04:59 Nitroglycerin (Nitrostat Tab) 0.4 mg UD PRN SL 12/06/16 05:00 01/05/17 04:59 Morphine Sulfate (MoRPHine SULFATE INJ) 2 mg Q30M PRN IV 12/06/16 05:00 12/20/16 04:59 Aspirin (Ecotrin Tab) 81 mg QAM PO 12/06/16 09:00 01/05/17 08:59 12/06/16 08:57 81 MG Polyethylene (Miralax Powder Packet) 17 gm DAILY PRN PO 12/06/16 05:00 01/05/17 04:59 Levofloxacin 750 mg/Prmx 150 ml @ 100 mls/hr Q24H IV 12/07/16 06:00 12/13/16 05:59 Fluticasone Propionate (Flonase Nasal [place]) 1 sprays HS HUNG 12/06/16 21:00 01/05/17 20:59 Levothyroxine Sodium (Synthroid Tab) 150 mcg DAILYBB PO 12/06/16 06:00 01/05/17 05:59 12/06/16 06:12 150 MCG Multivitamins (Multivitamin Tab) 1 tab DAILY PO 12/06/16 09:00 01/05/17 08:59 12/06/16 08:57 1 TAB Ascorbic Acid (Vitamin C Tab) 500 mg QAM PO 12/06/16 09:00 01/05/17 08:59 12/06/16 08:57 500 MG Calcium/Vitamin D (Caltrate Plus Tab) 1 tab BID PO 12/06/16 09:00 01/05/17 08:59 12/06/16 08:56 1 TAB Miscellaneous (Iv Fluids Completed) 1 ea PRN PRN N/A 12/06/16 05:15 12/06/17 05:14 Ipratropium [place] (Atrovent 0.02% 0.5MG/2.5ML Neb) 0.5 mg Q6H PRN INH 12/06/16 06:15 01/05/17 06:14 Levalbuterol (Xopenex 1.25MG/ 0.5ML Neb) 1.25 mg Q6H PRN INH 12/06/16 06:15 01/05/17 06:14 Sodium Chloride 1,000 ml @ 100 mls/hr Q10H IV 12/06/16 14:19 12/06/16 19:18 Acetaminophen (Tylenol Tab) 650 mg Q4H PRN PO 12/06/16 14:30 01/05/17 14:29 Metoprolol Succinate (Toprol Xl Tab) 25 mg BID PO 12/07/16 09:00 01/06/17 08:59 UNV
[2016-12-06] MEDS: FLUTICASONE PROPIONATE NA SPR 16 GM BTL NAE SCH (20:43)
[2016-12-07 04:11] VITALS: BP 106/65; PULSE 64; TEMP 36.6; O2SAT 96
[2016-12-07] MEDS: LEVOTHYROXINE 150 MCG TAB PO SCH (05:36)
[2016-12-07 05:50] LABS: HEMATOCRIT 44.2 % (37-47); MEAN CELL VOLUME 95.3 fL (80-100); MEAN CORPUSCULAR HEMOGLOBIN 32.3 pg (25-34); MEAN CORPUSCULAR HGB CONC 33.9 g/dl (32-36); MEAN PLATELET VOLUME 9.5 fL (7.4-10.4); PLATELET COUNT 334 K/uL (130-400); RED BLOOD COUNT 4.64 M/uL (4.2-5.4); WHITE BLOOD COUNT 14.83 K/uL (4.8-10.8)
[2016-12-07] MEDS ORDERED: LEVOFLOXACIN / D5W 750 MG in PREMIXED IN D5W 150 ML IV SCH (06:00)
[2016-12-07 06:27] LABS: BUN/CREATININE RATIO 18.7 (10-20); CALCIUM 9.1 mg/dl (8.5-10.1); CREATININE 0.93 mg/dl (0.60-1.20)
[2016-12-07 07:53] VITALS: BP 104/55; PULSE 80; TEMP 36.7; O2SAT 97
[2016-12-07] MEDS: CALCIUM 600MG + VIT D 400 IU TAB PO SCH (08:30)
[2016-12-07] MEDS: ASCORBIC ACID 500 MG TAB PO SCH (08:30)
[2016-12-07] MEDS: MULTIVITAMIN TAB PO SCH (08:30)
[2016-12-07] MEDS: ASPIRIN 81 MG ECTAB PO SCH (08:30)
[2016-12-07] MEDS: ENOXAPARIN 40 MG/0.4 ML SYR SC SCH (08:34)
[2016-12-07] MEDS ORDERED: METOPROLOL SUCC 25MG EXT REL TAB PO SCH (09:00)
[2016-12-07] MEDS ORDERED: SERTRALINE HCL 50 MG TAB PO SCH (09:00)
--- NOTE | 2016-12-07 10:59 | Pulmonary Consultation ---
History General Date of Service: Dec 07, 2016. Stated Complaint: Dyspnea HPI The patient is a 61 year old female who presents to with complaints of Dyspnea. The patient's primary care provider is Harjit Ramos M.D.([facility]). Ms. Shelby is a 61-year-old female with past medical history of childhood asthma, hypothyroidism who presents on 12/05/2016 with the sudden onset of dyspnea associated with chest tightness and wheezing. She describes this as if she was having a presentation "asthma attack". She used her rescue inhaler without relief and and presented to the ER for further evaluation. She states that she had a recent upper respiratory infection about 4 weeks ago and was treated with prednisone and Z-Keenan. She had some relief and improvement of her symptoms but still continued to have mild intermittent shortness of breath. Because of her history of asthma and intermittently airway hyperreactivity she uses a rescue inhaler when necessary. She says sometimes she uses about once every other month. However over the last 4 weeks she has used it at least twice a day. She is sometimes a chest tightness associated with exercise. Her normal exercise tolerance is about 3 miles when she walks her dog. However on Monday night she walked only 1 mile. She says she was mildly dyspneic at this point. Her symptoms resolved with rest. 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 She has been relatively asymptomatic. She denies any known triggers, but states that it was wet and rainy when her symptoms started. She states that she has been more stressed at work lately. She denies any fevers, chills, chest pain, lightheadedness, dizziness, lower extremity swelling or edema, recent travel or sick contacts. She denies any paroxysmal atrial dyspnea and has no history of obstructive sleep apnea. Initial vital signs were temperature 36.8, pulse is 131, respiratory rate was 35, blood pressure was 160/103, saturating 97% on room air. Laboratory data was significant for white blood cell count of 16, potassium of 3.2, troponin of 0.235 and BNP of 213. EKG showed sinus tachycardia with nonspecific ST-T wave changes. Chest x-ray showed no acute pulmonary disease. She was also noted to have a d- dimer greater than 450. A CT chest with contrast was performed to rule out pulmonary embolism which was negative. It did show mild emphysematous changes along with a subcentimeter pulmonary nodule in the left lower lobe. Repeat troponin showed increased troponin to 0.683 -->0.916. She was admitted for observation to rule out ACS. Blood cultures sent and are negative to date. She was seen by cardiology for elevated troponins and she underwent left cardiac catheterization which showed essentially normal coronary arteries. From a respiratory standpoint she is on Levaquin 750 every 24 hours, Atrovent/ Xopenex nebulizer every 6 hours when necessary. She was started on metoprolol 25 mg for an NSTEMI. Over the last 24 hours her vital signs have been temperature 36.7, blood pressure 104 with 55-106/65, pulse 64-80, respiratory rate 16-20, pulse oximetry 96%. Historian: patient Onset: just prior to arrival Severity: moderate Complaint Status: improved Modifying Factors: none Review of Systems Constitutional: reports: as stated in HPI, weight gain Eyes: reports: as stated in HPI ENT: reports: nasal congestion, rhinorrhea Cardiovascular: reports: as stated in HPI Respiratory: reports: cough, shortness of breath, wheezing Gastrointestinal: reports: no symptoms Genitourinary - Female: reports: as stated in HPI Musculoskeletal: reports: as stated in HPI Integumentary: reports: as stated in HPI Neurologic: reports: as stated in HPI Psychiatric: reports: as stated in HPI Endocrine: as stated in HPI Hematologic / Lymphatic: as stated in HPI Allergic / Immunologic: as stated in HPI All Other Symptoms All Other Systems: Reviewed and Negative Past Medical History Past Medical History: None Past Surgical History: Tubal ligation Ankle surgery Family History FH: respiratory disease FATHER Father and brother have history of asthma Father has history of CAD status post CABG at age 60 Social History [id number] history of smoking quit in July 2016 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) Immunizations History of Influenza Vaccine: Yes Influenza Vaccine Date: Dec 11, 2015 History of Tetanus Vaccine?: Yes Tetanus Immunization Date: Jan 14, 2014 History of Pneumococcal: No History of Hepatitis B Vaccine: No History of MDRO History of MDRO: No Allergies Coded Allergies: Penicillins (Verified Allergy, Severe, SOB, 12/06/16) Sulfa Antibiotics (Verified Allergy, Severe, SHORTNESS OF BREATH, 12/06/16 ) Current Medications Reported Home Medications Medications Dose Route/Sig Max Daily Dose Days Date Category Flonase Allergy Relief (Fluticasone Propionate (Nasal)) 50 Mcg/Act Spr 1 Combs HUNG HS 12/06/16 Reported Levothyroxine Sodium 150 Mcg Tab 150 Mcg PO DAILY 90 12/06/16 Reported Vitamin D3 (Cholecalciferol) 5,000 Unit Cap 5,000 Units PO DAILY 12/06/16 Reported Echinacea Unknown Strength Cap Unknown Dose PO DAILY 12/06/16 Reported Calcium & Magnesium (Calcium W/ Magnesium) 1 Tab Tab 1 Tab PO DAILY 12/06/16 Reported Vitamin C (Ascorbic Acid) 1,000 Mg Tab 1,000 Mg PO DAILY 12/06/16 Reported Multivitamin (Multivitamins) Tab 1 Tab PO DAILY 12/06/16 Reported Physical Physical Exam Vital Signs: Date Time Temp Pulse Resp B/P (MAP) Pulse Ox O2 Delivery O2 Flow Rate FiO2 12/07/16 08:00 Room Air 12/07/16 07:53 36.7 80 16 104/55 (71) 97 Room Air 12/07/16 04:11 36.6 64 20 106/65 (79) 96 12/07/16 04:00 Room Air 12/06/16 23:59 Room Air 12/06/16 23:26 36.9 70 20 134/80 (98) 95 Room Air 12/06/16 20:00 Room Air 12/06/16 18:41 36.9 78 18 107/63 (78) 96 Room Air 12/06/16 16:15 36.7 77 16 120/81 (94) 95 Room Air 12/06/16 16:00 Room Air 12/06/16 15:45 36.7 80 16 127/85 (99) 95 Room Air 12/06/16 15:15 36.8 82 16 144/77 (99) 93 Room Air 12/06/16 14:52 36.9 84 18 143/86 (105) 91 Room Air 12/06/16 14:45 36.8 82 16 133/87 (102) 97 Room Air 12/06/16 14:40 36.8 82 16 133/87 (102) 97 Room Air 12/06/16 14:21 80 16 128/83 (98) Room Air 12/06/16 14:11 84 11 139/80 (99) 95 Room Air 12/06/16 13:09 36.8 81 18 147/87 96 Room Air 12/06/16 12:38 81 147/87 (107) 12/06/16 12:34 82 154/91 (112) 96 Room Air 12/06/16 12:28 89 157/91 12/06/16 12:27 89 157/91 (113) 12/06/16 12:18 Room Air General Appearance: WELL-APPEARING, NO APPARENT DISTRESS, obese Head: NORMOCEPHALIC, ATRAUMATIC Eyes: PERRLA, NO DISCHARGE, EOMI, CONJUNCTIVAE NORMAL ENT: NORMAL MOUTH EXAM, NORMAL THROAT EXAM (Mallampati 3), sinus tenderness ( mild) Neck: NORMAL RANGE OF MOTION, NO TENDERNESS, TRACHEA MIDLINE, NO STRIDOR, SUPPLE Respiratory: BREATH SOUNDS NORMAL, CLEAR TO AUSCULTATION (no wheezing, no crackles) Cardiovasular: REGULAR RATE/RHYTHM, NORMAL S1S2, NO M/G/R Abdomen: NON TENDER, NORMAL BOWEL SOUNDS, NO REBOUND Back: NORMAL INSPECTION, NO MIDLINE TENDERNESS, NO CVA TENDERNESS Upper Extremities: NO EDEMA, NO DEFORMITY, NORMAL ROM, other (no cyanosis no clubbing) Lower Extremities: NO EDEMA, NO DEFORMITY, NORMAL ROM Pulses: dorsalis pedis (R) (2+), dorsalis pedis (L) (2+) Neuro: ALERT, ORIENTED x 3, NORMAL MOTOR EXAM, NORMAL SENSATION, NORMAL CEREBELLAR EXAM, NORMAL SPEECH, NORMAL GAIT, NORMAL MEMORY Psychiatric: NORMAL AFFECT, NO SUICIDAL IDEATION, CONTRACTS FOR SAFETY Diagnostics Labs Results Past 24 Hours Test 12/06/16 12:30 12/07/16 05:22 Range/Units Total Creatine Kinase 178 26-192 U/L Creatine Kinase MB 8.4 0.5-3.6 ng/ml Creatine Kinase MB Ratio 4.7 0-3.0 Troponin I 0.916 0-0.045 ng/ml White Blood Count 14.83 4.8-10.8 K/uL Red Blood Count 4.64 4.2-5.4 M/uL Hemoglobin 15.0 12.0-16.0 g/dL Hematocrit 44.2 37-47 % Mean Corpuscular Volume 95.3 80-100 fL Mean Corpuscular Hemoglobin 32.3 25-34 pg Mean Corpuscular Hemoglobin Concent 33.9 32-36 g/dl RDW Standard Deviation 45.0 36.4-46.3 fL RDW Coefficient of Variation 13.0 11.5-14.5 % Platelet Count 334 130-400 K/uL Mean Platelet Volume 9.5 7.4-10.4 fL Sodium Level 142 136-145 mmol/L Potassium Level 4.0 3.5-5.1 mmol/L Chloride Level 106 98-107 mmol/L Carbon Dioxide Level 27 21-32 mmol/L Anion Gap 9.0 3-11 mmol/L Blood Urea Nitrogen 17 7-18 mg/dl Creatinine 0.93 0.60-1.20 mg/dl Est Creatinine Clear Calc Drug Dose 73.8 ml/min Estimated GFR () 77.4 Estimated GFR (Non- 66.8 BUN/Creatinine Ratio 18.7 10-20 Random Glucose 91 70-99 mg/dl Calcium Level 9.1 8.5-10.1 mg/dl Diagnostic Radiology SINGLE VIEW CHEST CLINICAL HISTORY: Dyspnea. Asthma. FINDINGS: 2 AP, portable, upright chest radiographs are obtained. No prior studies are available for comparison at the time of dictation. The examination is degraded by portable technique and patient rotation. The heart is top normal for projection. The mediastinal contour is within normal limits. The lungs and pleural spaces are clear. No pneumothorax is seen. The skeletal structures are osteopenic. The bony thorax is grossly intact. IMPRESSION: No active disease in the chest. CT ANGIOGRAM OF THE CHEST CLINICAL HISTORY: Dyspnea. COMPARISON STUDY: Chest x-ray dated 12/06/2016. TECHNIQUE: Following the IV administration of 92 cc of Optiray 320, CT angiogram of the chest was performed from the upper abdomen to the thoracic inlet utilizing the pulmonary embolus protocol. Images are reviewed in the axial, sagittal, and coronal planes. 3-D MIPS images are created and assessed. IV contrast was administered without complication. A dose lowering technique was utilized adhering to the principles of ALARA. CT DOSE: 329.94 mGy.cm FINDINGS: Thyroid: Markedly atrophic. Thoracic aorta: The thoracic aorta is normal in caliber and demonstrates standard 3-vessel arch anatomy. No dissection is seen. Pulmonary vasculature: The pulmonary trunk is normal in caliber. There are no filling defects identified in main, lobar, or segmental pulmonary branches to suggest pulmonary embolus. Heart: The heart is normal in size and configuration, and without pericardial effusion. Lungs and pleural spaces: Mild paraseptal emphysematous change is seen at the lung apices. No airspace consolidation or pleural effusion is identified. Dependent atelectasis is observed. The trachea and central airways are clear. There is a 9 mm pulmonary nodule in the left lower lobe seen on image #94. Mediastinum: There is no mediastinal lymphadenopathy. Tenisha: Clear. Axillae: There is no axillary lymphadenopathy. Upper abdomen: A tiny hiatal hernia is identified. There is evidence of hepatic steatosis. A 1.4 cm hypodensity is seen in the left lobe of the liver. Skeletal structures: The skeletal structures are osteopenic. No lytic or blastic bony lesions are seen. IMPRESSION: 1. There is no evidence of pulmonary embolus in the main, lobar, or segmental pulmonary arteries. 2. There is no airspace consolidation or pleural effusion. 3. Mild emphysema. 4. There is a 9 mm pulmonary nodule in the left lower lobe. This should be followed as per the Fleischner criteria. See below. 5. There is a 1.4 cm hypodensity seen in the left lobe of the liver. This is an indeterminant and may represent a small hemangioma. This does not meet CT criteria for a cyst. If there is no cancer history then this is of low suspicion. If definitive characterization is desired then MRI of the liver would be appropriate. 6. Hepatic steatosis. TTE 12/06/2016 * -- Conclusions -- * Mildly dilated LV chamber size. * Normal wall thickness with thinning of the anterior and anteroseptal mitchell consistent with scar. * Akinesis of the mid anterior/anteroseptal mitchell. Normal wall motion of the basal/mid inferior wall and anteroapical mitchell, otherwise, moderate hypokinesis of all other segments. * Moderate reduced LV systolic function, EF 40-45%. * Grade I diastolic dysfunction. No significant valvular pathology Impression Assessment and Plan Given her acute as he is he is Subcentimeter nodule left lower lobe Shortness of breath NSTEMI Grade 1 diastolic dysfunction Patient admitted with acute shortness of breath in the setting of elevated troponins. CTA chest was negative for acute pulmonary embolism. Her symptoms are most likely related to ACS however due to her history of atopy, childhood asthma and smoking history \\ obstructive lung disease should be ruled out. She would need a definitive pulmonary function tests for this to be evaluated. She may have a combination of asthma and COPD overlap syndrome. Due to recent use of steroids and azithromycin I do not feel that corticosteroids are warranted at this time. Her lung exam is essentially normal. I would continue with rescue inhaler when necessary if she should have persistent symptom and feel that an inhaled corticosteroid should be added to her current regime. ( Pulmicort or QVAR). She denies any history of GERD so I don't think a PPI is warranted at this time , but this can contribute to symptoms of airway hyperreactivity. She does have chronic long-standing history of sinusitis which can precipitate asthma symptoms as well. Therefore I would continue with Flonase. Continue antibiotics for sinusitis. In regards to subcentimeter pulmonary nodule in the left lower lobe, this should be followed up in 6 months with repeat imaging for interval changes. She should follow up with pulmonary in 7-14 days post hospital discharge. I appreciate the consult.
[2016-12-07 11:27] VITALS: BP 128/78; PULSE 77; TEMP 36.7; O2SAT 95
--- NOTE | 2016-12-07 11:27 | Progress Note ---
Medicine Progress Note Date & Time of Visit: Dec 07, 2016 at 11:15. Subjective Pt was seen and examined Lying in bed comfortable with no distress Pt said that she feels much better Pt said that her breathing feels much better, but still having a mild pressure with breathing denies any chest pain, palpitation and dizziness Objective Last 8 Hrs Date Time Temp Pulse Resp B/P (MAP) Pulse Ox O2 Delivery O2 Flow Rate FiO2 12/07/16 08:00 Room Air 12/07/16 07:53 36.7 80 16 104/55 (71) 97 Room Air 12/07/16 04:11 36.6 64 20 106/65 (79) 96 12/07/16 04:00 Room Air Physical Exam: General- No acute distress Head- atraumatic Eyes- PERRL, EOMI ENT- oropharynx clear Neck- supple, no JVD Lungs- No wheezing Heart- regular rhythm Abdomen- normal bowel sounds, soft Extremities- no calf tenderness Neuro- alert, oriented x 3; PERRL, EOMI Skin- warm & dry Laboratory Results: Last 24 Hours Test 12/06/16 12:30 12/07/16 05:22 Total Creatine Kinase 178 U/L Creatine Kinase MB 8.4 ng/ml Creatine Kinase MB Ratio 4.7 Troponin I 0.916 ng/ml White Blood Count 14.83 K/uL Red Blood Count 4.64 M/uL Hemoglobin 15.0 g/dL Hematocrit 44.2 % Mean Corpuscular Volume 95.3 fL Mean Corpuscular Hemoglobin 32.3 pg Mean Corpuscular Hemoglobin Concent 33.9 g/dl RDW Standard Deviation 45.0 fL RDW Coefficient of Variation 13.0 % Platelet Count 334 K/uL Mean Platelet Volume 9.5 fL Sodium Level 142 mmol/L Potassium Level 4.0 mmol/L Chloride Level 106 mmol/L Carbon Dioxide Level 27 mmol/L Anion Gap 9.0 mmol/L Blood Urea Nitrogen 17 mg/dl Creatinine 0.93 mg/dl Est Creatinine Clear Calc Drug Dose 73.8 ml/min Estimated GFR () 77.4 Estimated GFR (Non- 66.8 BUN/Creatinine Ratio 18.7 Random Glucose 91 mg/dl Calcium Level 9.1 mg/dl Assessment & Plan Chest Tightness associated with Dyspnea Elevated troponin Possible related to stress induced Troponin trending up 0.2-->0.6-->0.9 EKG showed no ischemic changes Still having chest tightness No arrhythmia on tele monitor On statin, ASA and BB shirley Cardiology on board Echo done today * Mildly dilated LV chamber size. * Normal wall thickness with thinning of the anterior and anteroseptal mitchell consistent with scar. * Akinesis of the mid anterior/anteroseptal mitchell. Normal wall motion of the basal/mid inferior wall and anteroapical mitchell, otherwise, moderate hypokinesis of all other segments. * Moderate reduced LV systolic function, EF 40-45%. * Grade I diastolic dysfunction. * No significant valvular pathology. s/p cardiac cath performed today that was normal Case discussed with cardiology recommended to start on Toprol XL and SSRI Continue monitor in telemetry 12/07 s/p normal cardiac cath yesterday no right wrist hematoma/pain case discussed with cardiology recommended to discharge on lisinopril 2.5 mg and toprol XL 25mg daily follow up with cardiology btw 2 to 4 weeks continue SSRI, tolerated well Dyspnea Possible related to pulm etiology Echo showed Moderate reduced LV systolic function, EF 40-45%. CXR/CT chest showed no evidence for pneumonia Received levaquin Continue duoneb treatment blood cx no growth Pulmonary on board Recommended inhale corticosteroid (Qvar or Pulmicort) Follow up with pulmonology in 2 weeks Sinusitis Has been going on for weeks, possible bacteria Elevated WBC Continue levaquin to complete 5 days course Will add flonase Pulmonary nodule h/o smoking, quit last August Follow up with CT chest in 6 months to monitor the nodule Hypokalemia Stable Continue monitor BMP DVT proph: Lovenox CODE STATUS Full Code Disposition Will discharge home today Follow up with cardiology between 2-4 weeks Follow up with pulmonology in 2 weeks Follow up with PCP Consultants: Cardiology Procedures: Cardiac cath Current Inpatient Medications: Current Inpatient Medications Medications (Trade) Dose Ordered Sig/Galileo Route Start Time Stop Time Status Last Admin Dose Admin Ioversol (Optiray 320) 100 ml UD PRN IV 12/06/16 01:00 12/10/16 00:59 Enoxaparin Sodium (Lovenox Inj) 40 mg DAILY SC 12/06/16 10:30 01/05/17 10:29 12/06/16 12:51 40 MG Acetaminophen (Tylenol Tab) 650 mg Q4H PRN PO 12/06/16 05:00 01/05/17 04:59 12/07/16 05:35 650 MG Ondansetron HCl (Zofran Inj) 4 mg Q6H PRN IV 12/06/16 05:00 01/05/17 04:59 Nitroglycerin (Nitrostat Tab) 0.4 mg UD PRN SL 12/06/16 05:00 01/05/17 04:59 Morphine Sulfate (MoRPHine SULFATE INJ) 2 mg Q30M PRN IV 12/06/16 05:00 12/20/16 04:59 Aspirin (Ecotrin Tab) 81 mg QAM PO 12/06/16 09:00 01/05/17 08:59 12/07/16 08:30 81 MG Polyethylene (Miralax Powder Packet) 17 gm DAILY PRN PO 12/06/16 05:00 01/05/17 04:59 Levofloxacin 750 mg/Prmx 150 ml @ 100 mls/hr Q24H IV 12/07/16 06:00 12/13/16 05:59 12/07/16 05:36 100 MLS/HR Fluticasone Propionate (Flonase Nasal [place]) 1 sprays HS HUNG 12/06/16 21:00 01/05/17 20:59 Levothyroxine Sodium (Synthroid Tab) 150 mcg DAILYBB PO 12/06/16 06:00 01/05/17 05:59 12/07/16 05:36 150 MCG Multivitamins (Multivitamin Tab) 1 tab DAILY PO 12/06/16 09:00 01/05/17 08:59 12/07/16 08:30 1 TAB Ascorbic Acid (Vitamin C Tab) 500 mg QAM PO 12/06/16 09:00 01/05/17 08:59 12/07/16 08:30 500 MG Calcium/Vitamin D (Caltrate Plus Tab) 1 tab BID PO 12/06/16 09:00 01/05/17 08:59 12/07/16 08:30 1 TAB Miscellaneous (Iv Fluids Completed) 1 ea PRN PRN N/A 12/06/16 05:15 12/06/17 05:14 Ipratropium [place] (Atrovent 0.02% 0.5MG/2.5ML Neb) 0.5 mg Q6H PRN INH 12/06/16 06:15 01/05/17 06:14 Levalbuterol (Xopenex 1.25MG/ 0.5ML Neb) 1.25 mg Q6H PRN INH 12/06/16 06:15 01/05/17 06:14 Acetaminophen (Tylenol Tab) 650 mg Q4H PRN PO 12/06/16 14:30 01/05/17 14:29 Metoprolol Succinate (Toprol Xl Tab) 25 mg BID PO 12/07/16 09:00 01/06/17 08:59 12/07/16 08:30 25 MG Sertraline HCl (Zoloft Tab) 25 mg DAILY PO 12/07/16 09:00 01/06/17 08:59 12/07/16 08:31 25 MG
[2016-12-07 12:33] VITALS: PULSE 85; O2SAT 96
--- NOTE | 2016-12-07 12:54 | Cardiology Follow-Up ---
Subjective General Date of Service: Dec 07, 2016. Chief Complaint: SOB; chest pain Pt evaluation today including: conversation w/ patient, physical exam, chart review, lab review, review of studies, review of inpatient medication list History of Present Illness Patient feeling better this AM. Still notes mild dyspnea with ambulation. Chest tightness improved. Requesting discharge. Pulm to see patient. Radial cath site healing without drainage, pain. Allergies Coded Allergies: Penicillins (Verified Allergy, Severe, SOB, 12/06/16) Sulfa Antibiotics (Verified Allergy, Severe, SHORTNESS OF BREATH, 12/06/16 ) Social History Smoking Status: Former Smoker Hx Tobacco Use In Past Year?: No Hx Alcohol Use - Type And Amou: Yes (One monthly) Hx Substance Use - Type And Am: No Problem List Medical Problems: (1) Elevated troponin Status: Acute (2) Pneumonia Status: Acute (3) Respiratory distress Status: Acute Review of Systems Respiratory: + shortness of breath, No cough, No sputum, No dyspnea at rest, No hemoptysis Cardiac: No chest pain, No orthopnea, No PND, No edema, No palpitations Physical Exam Vital Signs Last Vital Signs Documentation Date Time Temp Pulse Resp B/P (MAP) Pulse Ox O2 Delivery O2 Flow Rate FiO2 12/07/16 11:27 36.7 77 16 128/78 (95) 95 Room Air Physical Exam Constitutional: General Apperance: heathly-appearing Level of Distress: NAD Psychiatric: Mental Status: active & alert Head: normocephalic Eyes: Pupils: PERRLA Neck: supple Lungs: Respiratory effort: no dyspnea Auscultation: no wheezing, no rales/crackles Cardiovascular: Heart Auscultation: RRR, normal S1, normal S2, no murmurs Musculoskeletal: normal Extremities: no edema Assessment and Plan Assessment and Plan 1. NSTEMI in setting of acute illness/pneumonia. -mild troponin elevation 0.2, 0.6, 0.9 respectively -echo revealed cardiomyopathy with LVEF 40-45% -cardiac cath with essentially normal coronary arteries, mild luminal irregularities noted -presumed viral vs takotsubo cardiomyopathy -med management recommended including ASA, Metoprolol succinate 25 mg daily, and lisinopril 2.5 mg daily 2. sinus tachycardia - improved on beta shirley 3. prior tobacco abuse 4. History of asthma with recent bronchitis/pneumonia - treatment per hospitalist/pulmonary team. 5. LLL Pulmonary nodule - will need follow up. Case discussed with Dr. Soria Stable cardiac signs/symptoms for discharge. Will arrange 2-4 week cardiology f/u. CARDIOLOGY ATTENDING ADDENDUM: The patient was seen and personally examined. Agree with Charline Sultana PA-C's findings and plans as documented above. Alright with D/C home Laboratory Results Last 24 Hours Test 12/07/16 05:22 White Blood Count 14.83 K/uL Red Blood Count 4.64 M/uL Hemoglobin 15.0 g/dL Hematocrit 44.2 % Mean Corpuscular Volume 95.3 fL Mean Corpuscular Hemoglobin 32.3 pg Mean Corpuscular Hemoglobin Concent 33.9 g/dl RDW Standard Deviation 45.0 fL RDW Coefficient of Variation 13.0 % Platelet Count 334 K/uL Mean Platelet Volume 9.5 fL Sodium Level 142 mmol/L Potassium Level 4.0 mmol/L Chloride Level 106 mmol/L Carbon Dioxide Level 27 mmol/L Anion Gap 9.0 mmol/L Blood Urea Nitrogen 17 mg/dl Creatinine 0.93 mg/dl Est Creatinine Clear Calc Drug Dose 73.8 ml/min Estimated GFR () 77.4 Estimated GFR (Non- 66.8 BUN/Creatinine Ratio 18.7 Random Glucose 91 mg/dl Calcium Level 9.1 mg/dl
[2016-12-07] MEDS ORDERED: LEVO1TAB33 PO (14:24)
[2016-12-07] MEDS ORDERED: TPRSR25 PO (14:24)
[2016-12-07] MEDS ORDERED: ZLF50 PO (14:24)
[2016-12-07] MEDS ORDERED: QVRINH80 INH (14:24)
[2016-12-07] MEDS ORDERED: LISI2.5T5 PO (14:32)
[2016-12-07] MEDS ORDERED: ASPEC81 PO (14:32)
--- NOTE | 2016-12-07 14:45 | Discharge Instructions ---
Discharge Instructions Date of Service Dec 07, 2016. Admission Reason for Admission: Dyspnea Discharge Discharge Diagnosis / Problem: Chest Tightness associated with Dyspnea, Sinusitis, Lung nodule Discharge Goals Goal(s): Decrease discomfort, Improve function, Improve disease control Activity Recommendations Activity Limitations: resume your previous activity (as tolerated) . Instructions / Follow-Up Instructions / Follow-Up Follow up with your primary care provider Dr. Ramos on 12/12 @ 12:55 pm Follow up with cardiology with Dr. Franco or Charline DAWSON between 2 to 4 weeks (office will call you for follow up appointment, please call if you don't hear from the office) Follow up with pulmonary in 2 weeks (please call to schedule for the follow up appointment) Complete course of Antibiotic with Levaquin Lisinopril 2.5 mg starts ( check BMP in 1 week) Follow up CT chest in 6 months for the lung nodule Starting on Qvar for the shortness of breath (please rinse your mouth after using it to prevent thrush) Starting on Zoloft, please watch for side effect of depression, suicidal thought , decrease sex drive, Nausea, vomiting) Monitor blood pressure Current Hospital Diet Patient's current hospital diet: AHA Diet (Heart Healthy) Discharge Diet Recommended Diet: AHA Diet (Heart Healthy) Pending Studies Studies pending at discharge: no Laboratory Results Lipid Panel Test 12/06/16 05:23 Range/Units Triglycerides Level 99 0-150 mg/dl Cholesterol Level 207 H 0-200 mg/dl HDL Cholesterol 88 mg/dl Cholesterol/HDL Ratio 2.4 LDL Cholesterol, Calculated 99 mg/dl Medical Emergencies . Who to Call and When: Medical Emergencies: If at any time you feel your situation is an emergency, please call 911 immediately. . Non-Emergent Contact Non-Emergency issues call your: Primary Care Provider Call Non-Emergent contact if: you have any medication questions . . "Provider Documentation" section prepared by Shira Dawson. . VTE Core Measure Inpt VTE Proph given/why not?: Enoxaparin (Lovenox)SQ
[2016-12-07] MEDS: FLUTICASONE PROPIONATE NA SPR 16 GM BTL NAE SCH (14:48)
[2016-12-07 14:50] VITALS: BP 142/86; PULSE 80; TEMP 36.7; O2SAT 94
[2016-12-07 14:53] VITALS: BP 128/78; PULSE 85; TEMP 36.7; O2SAT 96
--- NOTE | 2016-12-09 08:01 | Discharge Summary ---
Discharge Summary Date of Service Dec 09, 2016. Discharge Summary Admission Date: Dec 06, 2016 at 02:45 Discharge Date: Dec 07, 2016 Discharge Disposition: Home Principal Diagnosis: Chest Tightness associated with Dyspnea Secondary Diagnoses/Problems: Sinusitis Lung nodule Hypokalemia Dyspnea Procedures: Cardiac cath ECHO Interpretation Summary * Name: DEBORAH BENDER Study Date: 12/06/2016 10:42 AM BP: 116/72 mmHg * Patient Location: [facility]\\S\\[facility]\\S\\1 HR: 88 * : 1955 (M/d/yyyy) Gender: Female Height: 67 in * Age: 61 yrs Ethnicity: [place] Weight: 196 lb * Ordering Physician: Shira Dawson * Performed By: Gissel Cormier * * Reason For Study: ELEVATED TROP, CHEST PRESSURE * BSA: 2.0 m2 * -- Conclusions -- * Mildly dilated LV chamber size. * Normal wall thickness with thinning of the anterior and anteroseptal mitchell consistent with scar. * Akinesis of the mid anterior/anteroseptal mitchell. Normal wall motion of the basal/mid inferior wall and anteroapical mitchell, otherwise, moderate hypokinesis of all other segments. * Moderate reduced LV systolic function, EF 40-45%. * Grade I diastolic dysfunction. * No significant valvular pathology. Procedure Details * A complete two-dimensional transthoracic echocardiogram was performed (2D, M- mode, Doppler and color flow Doppler). * A contrast injection of Definity was performed to improve assessment of LV function. * Contrast was injected into an intravenous site in the left arm. * One vial of Definity ultrasound contrast was diluted in normal saline to a total volume of 10 ml. A total of '2' ml of solution was administered during imaging. * Lot # [id number] of Definity utilized for procedure. * Expiration date 12/14. * The attending nurse who injected the contrast agent was ALISHA CONWAY RN. Left Ventricle * The left ventricle is mildly dilated. * There is no thrombus. * Normal wall thickness with thinning of the anterior and anteroseptal mitchell consistent with scar. * Ejection Fraction = 40-45%. * Left ventricular systolic function is moderately reduced. * Akinesis of the mid anterior/anteroseptal mitchell. Normal wall motion of the basal/mid inferior wall and anteroapical mitchell, otherwise, moderate hypokinesis of all other segments. Right Ventricle * The right ventricular cavity size is normal (basal dimension <4.2 cm in right ventricular apical 4-chamber view). * The right ventricular systolic function is normal as assessed by tricuspid annular plane systolic excursion (TAPSE) (normal >1.5 cm). Atria * The left atrial size is normal. * Right atrial size is normal. * No ASD detected; PFO is not assessed. Mitral Valve * The mitral valve is normal in structure and function. Tricuspid Valve * The tricuspid valve is normal in structure and function. Aortic Valve * The aortic valve is not well visualized. * No hemodynamically significant valvular aortic stenosis. * There is no significant aortic regurgitation. Pulmonic Valve * The pulmonary valve is not well seen, but the Doppler examination is normal without significant regurgitation or stenosis. Great Vessels * The aortic root and proximal ascending aorta are normal sized. Pericardium/Pleural * There is no pericardial effusion. Left Ventricular Diastolic Function * Grade I diastolic dysfunction, (abnormal relaxation pattern). Consultations: Cardiology Medication Reconciliation New Medications: Beclomethasone Dip (Qvar) 80 Mcg/Act Aer 1 PUFF INH BID for 30 Days Levofloxacin (Levaquin) 500 Mg Tab 750 MG PO DAILY for 3 Days, #5 TAB Lisinopril (Lisinopril) 2.5 Mg Tab 1 TAB PO DAILY for 30 Days, #30 TAB Metoprolol Succinate (Metoprolol Succinate ER) 25 Mg Tabcr 25 MG PO DAILY for 30 Days Sertraline HCl (Sertraline HCl) 50 Mg Tab 25 MG PO DAILY for 30 Days, #15 TAB Continued Medications: Ascorbic Acid (Vitamin C) 1,000 Mg Tab 1000 MG PO DAILY Calcium W/ Magnesium (Calcium & Magnesium) 1 Tab Tab 1 TAB PO DAILY Cholecalciferol (Vitamin D3) 5,000 Unit Cap 5000 UNITS PO DAILY Echinacea (Echinacea) Unknown Strength Cap Unknown Dose PO DAILY Fluticasone Propionate (Nasal) (Flonase Allergy Relief) 50 Mcg/Act Spr 1 SPRAY HUNG HS Levothyroxine Sodium (Levothyroxine Sodium) 150 Mcg Tab 150 MCG PO DAILY for 90 Days, #90 TAB 3 Refills Multivitamin (Multivitamin) Tab 1 TAB PO DAILY, TAB Admission Information HPI (per Admitting provider): 61 yo F presents with persistent chest tightness and shortness of breath that has been ongoing x 3 weeks. She reports a history of childhood asthma and no history of heart disease in the past. She states that because of a cough and greenish drainage from her nose 3 weeks ago she was seen in the clinic and was diagnosed with an asthma exacerbation. She was prescribed a prednisone taper, azithromycin and a rescue inhaler. Although she didn't get worse she states that she never felt much better. She reports the SOB is there along with the feeling of chest pressure, but it doesn't limit her from doing the things she needs to do including walking the dog, climbing a flight of stairs, running errands,etc. She noted an extreme worsening in her ability to breathe earlier this evening and called EMS who gave her Solumedrol IV and a neb treatment in the field with some improvement in her symptoms. On arrival to the ER she received another neb treatment. She was given ASA 324 and Tylenol 1000mg. A D- dimer was checked and positive, so a CT PE was performed. There was a RML infiltrate seen, cardiac enzymes were mildly positive at 0.235 with the patient still reporting pressure in her chest, EKG was nonischemic and sinus rhythm and her HR was noted to be elevated. Although she reports significant respiratory distress, she is oxygenating well on room air at the time of this exam and has no conversational dyspnea. ROS reveals no fevers, chills, sweating, nausea, vomiting, abdominal pain, UTI symptoms, GI bleeding. 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 * Normal wall thickness with thinning of the anterior and anteroseptal mitchell consistent with scar. * Akinesis of the mid anterior/anteroseptal mitchell. Normal wall motion of the basal/mid inferior wall and anteroapical mitchell, otherwise, moderate hypokinesis of all other segments. * Moderate reduced LV systolic function, EF 40-45%. * Grade I diastolic dysfunction. * No significant valvular pathology. s/p cardiac cath performed today that was normal Case discussed with cardiology recommended to start on Toprol XL and SSRI Continue monitor in telemetry 12/07 s/p normal cardiac cath yesterday no right wrist hematoma/pain case discussed with cardiology recommended to discharge on lisinopril 2.5 mg and toprol XL 25mg daily follow up with cardiology btw 2 to 4 weeks continue SSRI, tolerated well Dyspnea Possible related to pulm etiology Echo showed Moderate reduced LV systolic function, EF 40-45%. CXR/CT chest showed no evidence for pneumonia Received levaquin Continue duoneb treatment blood cx no growth Pulmonary on board Recommended inhale corticosteroid (Qvar or Pulmicort) Follow up with pulmonology in 2 weeks Sinusitis Has been going on for weeks, possible bacteria Elevated WBC Continue levaquin to complete 5 days course Will add flonase Pulmonary nodule h/o smoking, quit last August Follow up with CT chest in 6 months to monitor the nodule Hypokalemia Stable Continue monitor BMP DVT proph: Lovenox CODE STATUS Full Code Disposition Will discharge home today Follow up with cardiology between 2-4 weeks Follow up with pulmonology in 2 weeks Follow up with PCP Total time spent on discharge = 35 minutes This includes examination of the patient, discharge planning, medication reconciliation, and communication with other providers. Discharge Instructions Discharge Instructions Date of Service Dec 07, 2016. Admission Reason for Admission: Dyspnea Discharge Discharge Diagnosis / Problem: Chest Tightness associated with Dyspnea, Sinusitis, Lung nodule Discharge Goals Goal(s): Decrease discomfort, Improve function, Improve disease control Activity Recommendations Activity Limitations: resume your previous activity (as tolerated) . Instructions / Follow-Up Instructions / Follow-Up Follow up with your primary care provider Dr. Ramos on 12/12 @ 12:55 pm Follow up with cardiology with Dr. Franco or Charline DAWSON between 2 to 4 weeks (office will call you for follow up appointment, please call if you don't hear from the office) Follow up with pulmonary in 2 weeks (please call to schedule for the follow up appointment) Complete course of Antibiotic with Levaquin Lisinopril 2.5 mg starts ( check BMP in 1 week) Follow up CT chest in 6 months for the lung nodule Starting on Qvar for the shortness of breath (please rinse your mouth after using it to prevent thrush) Starting on Zoloft, please watch for side effect of depression, suicidal thought , decrease sex drive, Nausea, vomiting) Monitor blood pressure Current Hospital Diet Patient's current hospital diet: AHA Diet (Heart Healthy) Discharge Diet Recommended Diet: AHA Diet (Heart Healthy) Pending Studies Studies pending at discharge: no Laboratory Results Lipid Panel Test 12/06/16 05:23 Range/Units Triglycerides Level 99 0-150 mg/dl Cholesterol Level 207 H 0-200 mg/dl HDL Cholesterol 88 mg/dl Cholesterol/HDL Ratio 2.4 LDL Cholesterol, Calculated 99 mg/dl Medical Emergencies . Who to Call and When: Medical Emergencies: If at any time you feel your situation is an emergency, please call 911 immediately. . Non-Emergent Contact Non-Emergency issues call your: Primary Care Provider Call Non-Emergent contact if: you have any medication questions . . "Provider Documentation" section prepared by Shira Dawson. . VTE Core Measure Inpt VTE Proph given/why not?: Enoxaparin (Lovenox)SQ Additional Copies To Harjit Ramos M.D.(CHRYSTAL)
== END 2016-12-07 15:14 | disposition home or self-care (01) ==
LOC: EDBD 23:45 → C.EDC 23:46 → C.2T 12-06 02:45 → ENRESERV 12-06 03:11
PROVIDERS: ADMIT Hospitalist; ATTEND Internal Medicine
DX: J18.9 Pneumonia, unspecified organism (principal); I21.4 Non-ST elevation (NSTEMI) myocardial infarction; I42.9 Cardiomyopathy, unspecified; E87.6 Hypokalemia; J45.909 Unspecified asthma, uncomplicated; Z87.891 Personal history of nicotine dependence; Z79.899 Other long term (current) drug therapy; E03.9 Hypothyroidism, unspecified; J32.9 Chronic sinusitis, unspecified; R91.1 Solitary pulmonary nodule; Z79.82 Long term (current) use of aspirin; R07.9 Chest pain, unspecified